=== PATIENT | male | born 1950 | race African-American/Black ===

== ENCOUNTER 2020-03-23 02:36 | Emergency (ER) | payer OTHER, MEDICARE, SELFPAY ==
[2020-03-23 02:37] VITALS: BP 153/94; PULSE 67; RESP 18; TEMP 36.7; O2SAT 97; BMI 27.3
[2020-03-23] MEDS: Tetracaine 0.5% Ophthalmic Bottle 1 DRP LEFT EYE (02:59)
[2020-03-23] MEDS: Fluorescein 1 MG STRIP 1 STRIP LEFT EYE (03:00)
--- NOTE | 2020-03-23 03:05 | ED.DCSUM_ITS ---
- ER Visit Summary Date of Service: 03/23/20 Chief Complaint: [Left eye foreign body sensation] History of Present Illness: The patient is a 69 M [presents to the emergency department complaint of foreign body sensation in his left eye. 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 Patient states that he had a coworker assist him to irrigate the eye and the coworker thought that she was able to remove something from the eye but he still feels irritation and photophobia. Patient still has foreign body sensation. Patient with history of stroke, hypertension, high cholesterol, and history of BPH.] Physical Examination: [HEENT-PERRLA, EOMI. Cranial nerves II through XII grossly intact. TMs clear. Mucous membranes moist. No adenopathy. Left eye- eyelids were everted and no foreign bodies noted. Tetracaine was instilled in the left eye and the eye was stained with floor seen and no uptake was noted. No foreign bodies noted on the cornea. No significant conjunctival erythema noted. Cardiovascular-regular rate and rhythm without murmur or ectopy Lungs-clear to auscultation, chest wall stable without crepitus or subcu emphysema Abdomen-normoactive bowel sounds, soft, nontender, no rebound or rigidity, no peritoneal signs. Extremities-intact ?4, normal range of motion, normal pulses, atraumatic] Test Results: [] Emergency Department Course and Treatment: [Patient will was given gentamicin ophthalmic drops. ] Treatment Plan: [Patient advised to follow-up with ophthalmology tomorrow. Nadira ent given gentamicin ophthalmic drops for home.] Disposition: [Discharged home in stable condition] Impression: [Left eye pain ] Foreign body sensation left eye This note was generated with Sabre dictation software. It may contain incorrect words, spelling, and punctuation that were not noted in review of the chart prior to signing ED Disposition - Plan for ED Patient: Referrals: Mraitza Feldman MD [Primary Care Provider] -
--- NOTE | 2020-03-23 03:08 | ED.DEP ---
ED Disposition - Plan for ED Patient: Instructions: ED EYE FOREIGN BODY Corneal Referrals: Maritza Feldman MD [Primary Care Provider] - Vlad Joe MD [STAFF PHYSICIAN] - 1 Day
[2020-03-23] MEDS: Gentamicin Sulfate 1 OPTH.BTL 2 DRP LEFT EYE (03:47)
[2020-03-23 03:53] VITALS: PULSE 76; RESP 16; O2SAT 98
== END 2020-03-23 03:53 | disposition home or self-care (01) ==
PROVIDERS: Emergency Provider Emergency Medicine; PCP Internal Medicine
DX: H57.12 Ocular pain, left eye (principal); R44.8 Other symptoms and signs involving general sensations and perceptions; I10 Essential (primary) hypertension; E78.00 Pure hypercholesterolemia, unspecified; N40.0 Benign prostatic hyperplasia without lower urinary tract symptoms; Z79.82 Long term (current) use of aspirin; Z79.899 Other long term (current) drug therapy; Z86.73 Personal history of transient ischemic attack (TIA), and cerebral infarction without residual deficits
CPT/HCPCS: 99283

== ENCOUNTER → 2020-05-28 | Outpatient (CLI) | payer OTHER, SELFPAY ==
[2020-05-28 10:09] VITALS: BMI 27.1
== END | disposition home or self-care (01) ==
LOC: LABSPEC 12:55
PROVIDERS: PCP Internal Medicine; Referring Provider Physician Assistant Surgical; Visit Provider Physician Assistant Surgical
DX: Z20.828 Contact with and (suspected) exposure to other viral communicable diseases (principal)
CPT/HCPCS: 87635; U0003

== ENCOUNTER 2020-09-10 16:32 | Emergency (ER) | payer OTHER, MEDICARE, SELFPAY ==
[2020-05-28 10:09] VITALS: BMI 27.1
[2020-09-10 16:33] VITALS: BP 135/80; PULSE 93; RESP 19; TEMP 36.3; O2SAT 98; BMI 29.5
--- NOTE | 2020-09-10 16:48 | ED.VIS.GEN ---
History of Present Illness Chief Complaint: Cough Informant: Patient Narrative: 70-year-old male with history of hypertension presenting with 2 days of mild cough, rhinorrhea, body aches. No loss of taste or smell. He denies chest pain or shortness of breath. He has no known exposure to anybody ill. He is eating and drinking normally. He is making normal urine and stool. - Past Medical History (1) Asthma Status: Chronic (2) BPH (benign prostatic hyperplasia) Status: Chronic (3) Benign essential HTN Status: Chronic Past Medical History - Allergies and Home Meds Allergies/Adverse Reactions: Allergies oxycodone HCl [From Percocet] Allergy (Verified 09/10/20 16:34) [place] Primary Care Physician: Maritza Feldman MD [Primary Care Provider] - Prior records reviewed: Yes Past Medical History: - - Reviewed in problem list Surgical History: noncontributory, total knee arthroplasty, - - two tendons in the right wrist repaired Lives: Spouse/ Significant Other Smoking Status: Former smoker Alcohol: None Drugs: None - Family History Maternal Family History: Family History (Last Updated 05/28/20 @ 10:13 by Clary Melendez) Other Diabetes Hypertension Family History: Reports: - - mother dies of kidney complications Paternal Family History: Family History (Last Updated 05/28/20 @ 10:13 by Clary Melendez) Other Diabetes Hypertension Family History: Reports: - - father of pneumonia Review of Systems General: Reports: Chills. Denies: Fever, Malaise Eyes: Denies: Visual changes - bilaterally, Diplopia ENT: Reports: Rhinorrhea. Denies: Sore throat Cardiovascular: Denies: Chest pain, Palpitations, Heart racing Respiratory: Reports: Cough. Denies: Dyspnea, Sputum Gastrointestinal: Denies: Abdominal pain, Nausea, Vomiting Genitourinary: Denies: Dysuria, Hematuria Musculoskeletal: Reports: Myalgias. Denies: Arthralgias, Neck pain Skin: Denies: Rash, Abscess Neurological: Denies: Headache, Weakness, Parasthesia Psych: Denies: Depression, Anxiety Physical Exam Vital Signs/Narrative: Vital Signs Temp Pulse Resp BP Pulse Ox 09/10/20 16:33 97.3 F L 93 19 H 135/80 H 98 Inital Vital Signs reviewed: Yes General: Well nourished, No Acute Distress Head: Normocephalic, Atraumatic Eyes: Perrl, EOMI ENT: Moist mucous membranes, - - Rhinorrhea Cardiovascular: Regular rate, Regular rhythm Respiratory: No distress, CTA bilaterally, Chest nontender Extremities: Nontender, No edema Skin: Normal color, No rash. Negative for: Cyanosis, Diaphoresis Neurological: Alert, Oriented x3, Cranial nerves II-XII grossly intact Psychological: Normal affect, Normal Mood Diagnostic/Tx/Re-eval Clinical Impression(s) from Imaging Studies Chest X-Ray 09/10/20 17:20 IMPRESSION: No acute pulmonary process Electronically Signed: Michael Mora MD at 17:52 EST , Service support , - Medical Decision Making 70-year-old male presenting with a cough and rhinorrhea. He has no known exposure to COVID-19. Obtained rapid Covid antigen which was negative. Chest x-ray is interpreted by myself shows no acute cardiopulmonary process. Radiology does agree. Given this I do not believe the patient needs antibiotics. I wrote him for Mucinex and he will alternate Tylenol and ibuprofen. He will return if he has new or worsening symptoms. Pression: 1. Viral syndrome ED Disposition - Plan for ED Patient: Disposition: Home or Assisted Living Instructions: ED Viral Syndrome (Adult) Prescriptions: Guaifenesin [Mucinex] 600 mg PO BID PRN PRN #[id number] PRN Reason: Congestion Prescription Printed Referrals: Maritza Feldman MD [Primary Care Provider] -
--- NOTE | 2020-09-10 17:20 | RAD_ITS ---
STUDY: X-RAY CHEST REASON FOR EXAM: Male, 70 years old. Fever and cough TECHNIQUE: Single AP portable view of the chest. COMPARISON: 11/02/2016 FINDINGS: The lungs are clear and expanded. There is no demonstrated pleural abnormality. Normal size heart. Normal mediastinum and barry. Normal visualized pulmonary arteries. Normal visualized aortic arch and descending thoracic aorta. There are diffuse degenerative changes of the visualized thoracic spine. There is degenerative osteoarthritis of the bilateral shoulders. There is no demonstrated abnormality of the visualized soft tissue structures of the upper abdomen. RAD/Chest 1 View (Portable) IMPRESSION: No acute pulmonary process Electronically Signed: Michael Mora MD at 17:52 EST , Service support ,
== END 2020-09-10 18:24 | disposition home or self-care (01) ==
PROVIDERS: Emergency Provider Student in an Organized Health Care Education/Training Program; PCP Internal Medicine
DX: B34.9 Viral infection, unspecified (principal); I10 Essential (primary) hypertension; J45.909 Unspecified asthma, uncomplicated; N40.0 Benign prostatic hyperplasia without lower urinary tract symptoms; Z79.82 Long term (current) use of aspirin; Z79.899 Other long term (current) drug therapy; Z87.891 Personal history of nicotine dependence
CPT/HCPCS: 71045; 87426; 99282

== ENCOUNTER → 2022-05-01 | Outpatient (CLI) | payer MEDICARE, SELFPAY ==
--- NOTE | 2022-05-01 08:00 | RAD_ITS ---
PROCEDURE: Fluoroscopic guided Hip Injection DATE: 05/01/2022. INDICATION: Male, 71 years old. Chronic left hip pain. PHYSICIAN: Gerardo Matthews M.D. MEDICATIONS: 80 mg of KENALOG and 3 cc of 1% LIDOCAINE. 2% lidocaine administered subcutaneously for local anesthesia. ACCESS SITE: Left hip. NEEDLE: 22-gauge spinal needle. FLUOROSCOPY TIME (if supplied): (0:45) minutes/seconds. One image was submitted. FINDINGS: The risks, benefits, and alternatives to the procedure were explained to the patient. The specific risks of bleeding, infection, and neurovascular injury were detailed and accepted. Witnessed informed consent was obtained. A 22-gauge spinal needle was positioned under radiographic fluoroscopic localization. Approximately 2 cc of ISOVUE-300 instilled for localization purposes. Medication was then injected. The patient tolerated the procedure well without any immediate complications. RAD/Inj/Asp Danny Jt Should/Hip/Knee IMPRESSION: 1. Successful fluoroscopic guided hip injection. Electronically Signed: Gerardo Matthews MD at 9:11 EDT ,
[2022-05-01] MEDS: Lidocaine 2% (5ml sdv) 5 ML VIAL.MPF INFILT (08:25)
[2022-05-01] MEDS: Lidocaine 1% (5 ml sdv) 5 ML Vial 3 ML INFILT (08:25)
[2022-05-01] MEDS: Triamcinolone Acetonide 40 MG/ML Vial 80 MG INTRAARTIC (08:25)
== END | disposition home or self-care (01) ==
LOC: RAD 07:46
PROVIDERS: PCP Internal Medicine
DX: M16.12 Unilateral primary osteoarthritis, left hip (principal); G89.29 Other chronic pain
CPT/HCPCS: 20610; 77002; Q9967

== ENCOUNTER 2022-06-30 07:08 | Emergency (ER) | payer OTHER, MEDICARE, SELFPAY ==
[2022-06-30 07:09] VITALS: BP 128/90; PULSE 89; RESP 18; TEMP 36.6; O2SAT 99; BMI 26.7
--- NOTE | 2022-06-30 07:22 | RAD_ITS ---
STUDY: X-RAY - LEFT FEMUR REASON FOR STUDY: Male, 72 years old. fall/injury TECHNIQUE: 2 view(s) of the femur. COMPARISON: None. FINDINGS: Normal visualized femur. Normal visualized soft tissue structure. Status post knee arthroplasty. RAD/Femur Min 2 Views IMPRESSION: No acute fracture or dislocation. Electronically Signed: Juan Pablo Barriga MD at 8:12 EST ,
--- NOTE | 2022-06-30 07:22 | RAD_ITS ---
STUDY: X-RAY - PELVIS REASON FOR EXAM: Male, 72 years old. fall/injury TECHNIQUE: One view of the pelvis was obtained. COMPARISON: None. FINDINGS: There is a non-specific bowel gas pattern. Normal visualized soft tissue structures. Normal bilateral iliac wings, sacroiliac joints and visualized sacrum. Normal visualized bilateral superior and inferior pubic rami. Normal pubic symphysis. Normal ischial tuberosities. There are osteoarthritic changes of the right femoral head with marginal osteophyte formation. Normal right acetabulum. There is mild articular joint space narrowing of the right hip. There are osteoarthritic changes of the left femoral head with marginal osteophyte formation. Normal left acetabulum. There is mild articular joint space narrowing of the left hip. RAD/Pelvis 1 or 2 Views IMPRESSION: No acute fracture or dislocation. Electronically Signed: Juan Pablo Barriga MD at 8:11 EST ,
--- NOTE | 2022-06-30 07:23 | EDS_ITS ---
HPI History of Present Illness Chief Complaint: Lower Extremity Injury Informant: patient Occured/Mechanism Mechanism/Context: Yes fall and Yes work related Comment: Down approximately 3 steps Onset/Context/Timing Onset: Days (5) Context: Sudden Onset Timing: Continuous Quality of Pain: Aching Location: left hip, left low back Current Severity: Moderate Maximum Severity: Severe Worsened by: WBing, walking, moving Relieved by: remaining still Associated Symptoms Associated Symptoms: Negative for Parasthesia, Weakness or Loss of Funtion Narrative Narrative: Patient was at work walking down a flight of 6 or 7 stairs, he states he caught a lip that was on the step, fell onto his left hip. This was 5 days or so ago, ever since then his left groin, hip, left low back have been hurting. He has been walking, but it is progressively more difficult and painful to do so. He has some chronic arthritis/bone spurs in the left hip, and states about a month ago he had a hip joint injection anteriorly. [facility] Medical History (Updated 06/30/22 @ 14:[address] Hussein Layton MD) Asthma Benign essential HTN BPH (benign prostatic hyperplasia) Cerebrovascular accident Gastric ulcer HLD (hyperlipidemia) Home Medications aspirin 81 mg chewable tablet 81 mg PO DAILY@0800 08/22/13 [History Last Taken 11/02/16 07:00] atorvastatin 20 mg tablet 20 mg PO QHS 08/22/13 [History Last Taken 11/01/16 21:30] docusate sodium 100 mg capsule (DOK) 100 mg PO DAILY 08/22/13 [History Last Taken 08/16/16] lisinopril 40 mg tablet 40 mg PO DAILY 08/22/13 [History Last Taken 11/02/16 07:00] doxazosin 4 mg tablet 4 mg PO QHS 04/29/15 [History Last Taken 08/16/16] nifedipine 60 mg tablet,extended release 60 mg PO DAILY 04/29/15 [History Last Taken 11/02/16 07:00] albuterol sulfate 90 mcg/actuation aerosol inhaler (Ventolin HFA) 2 puff inhalation Q4H PRN PRN Shortness Of Breath 09/30/15 [History Last Taken Unknown] tamsulosin 0.4 mg capsule 0.4 mg PO DAILY 5 days 06/02/16 [Rx Last Taken 08/16/16] Allergy/AdvReac Type Severity Reaction Status Date / Time oxycodone HCl [From Percocet] Allergy Hives Verified 06/30/22 07:13 Family History (Updated 05/28/20 @ 10:13 by Clary Melendez) Other Diabetes Hypertension Social History Smoking Status: Former smoker ROS ROS ED Constitutional Constitutional ED: Denies chills or fever(s) Musculoskeletal Musculoskeletal: Reports back pain and extremity pain; Denies neck pain Integumentary Denies Abrasions, rash or wounds Neurologic Neurologic: Denies paresthesias or weakness EXAM Physical Exam Const Vital Signs: 06/30/22 07:09 06/30/22 13:35 Temperature 97.8 F Temperature Source Temporal Pulse Rate 89 Respiratory Rate 18 Blood Pressure 128/90 H Blood Pressure Mean 102 Pulse Ox 99 98 Oxygen Delivery Method Room Air Room Air Positive well nourished and well developed General Appearance ED: well developed and NAD HEENT Reports moist mucous membranes Neck full ROM and supple Back/Spine normal to inspection Back/Spine Narrative: painful ROM but able. left low back paraspinal musculature/pelvic brim tenderness, no midline spinal tenderness. Extremity normal to inspection and full ROM Extremity Narrative: painful L hip int/ext rotation, tender greater trochanter. No deformity. Pelvis stable to AP compression and nontender ASIS. He also has some mild tenderness in the left distal femur near the knee. All compartments are soft and nondistended. There are no deformities. Full range of motion of the knee. Status post bilateral knee replacements. Neurovascularly intact distally both lower legs. Neuro oriented x3, no focal motor deficits and no sensory deficits noted Sensorium / Orientation: alert Psych mental status grossly normal and thought process normal Skin no wounds Rashes: no rashes MDM MDM MDM Narrative Medical decision making narrative: X-rays of the left hip including the femur were obtained, and then when I viewed the 1 view pelvis, interpreting it as negative for anything acute but seen an unusual calcification that resembled a fracture in the mid right femur jail onto the film, femur x-rays of the right femur were also obtained to evaluate this further. On my interpretation, 4 views of the right femur show no acute abnormality, these calcifications appear to be vascular in nature and not related to the femur itself. On my interpretation, 4 view x-ray series of the left femur and the pelvis view are negative for anything acute. Reasonable to suspect an occult left hip fracture here. I think the views are good/adequate, and I think it would be reasonable to skip CT, which is not as sensitive as MR, and get more definitive study MRI to determine if the patient should be admitted for surgery or discharged with supportive care. MRI was done, and is negative for anything acute except for arthrosis of the left hip. This is reassuring to the point where I am comfortable discharging the patient home with supportive care and close outpatient follow-up with [facility], I suspect his pain is due to exacerbation of his left hip arthrosis under the circumstances. Patient was given [place] here several times and this helped his pain temporarily, advised to continue NSAIDs as needed until he follows up, given appropriate work restrictions. Radiography Diagnostic Testing: Clinical Impression(s) from Imaging Studies Femur X-Ray 06/30/22 07:22 IMPRESSION: No acute fracture or dislocation. Electronically Signed: Juan Pablo Barriga MD at 8:12 EST Reading Location ID and State: [place] [facility] [employer] Tel , Service support , Pelvis X-Ray 06/30/22 07:22 IMPRESSION: No acute fracture or dislocation. Electronically Signed: Juan Pablo Barriga MD at 8:11 EST Reading Location ID and State: [place] [employer] , Service support , Femur X-Ray 06/30/22 07:43 IMPRESSION: No acute fracture or dislocation. Electronically Signed: Juan Pablo Barriga MD at 8:13 EST Reading Location ID and State: [place] [facility] [employer] Tel , Service support , Lower Extremity MRI 06/30/22 09:02 IMPRESSION: Mild arthrosis. Electronically Signed: Juan Pablo Barriga MD at 13:51 EST Reading Location ID and State: [place] [employer] , Service support , Discharge Plan Triage Chief Complaint: Lower Extremity Injury ED Provider: Hussein Layton Dx/Rx/DC Orders Clinical Impression: Contusion of hip, left, Hip arthrosis, Fall from steps Instructions: ED Hip Contusion Prescriptions: No Action atorvastatin 20 MG tablet 20 mg PO QHS Label Comments: cholesterol docusate sodium [DOK] 100 MG capsule 100 mg PO DAILY Label Comments: stool softener aspirin 81 MG tablet,chewable 81 mg PO DAILY@0800 Label Comments: heart health lisinopril 40 MG tablet 40 mg PO DAILY Label Comments: Blood pressure doxazosin 4 MG tablet 4 mg PO QHS Label Comments: heart health nifedipine 60 MG tablet extended release 60 mg PO DAILY Label Comments: Blood pressure albuterol sulfate [Ventolin HFA] 1 INHALER inhaler 2 puff inhalation Q4H PRN PRN (Reason: Shortness Of Breath) Label Comments: shortness of breath tamsulosin 0.4 MG capsule 0.4 mg PO DAILY 5 Days 0RF Label Comments: BPH Primary Care Provider: Maritza Feldman Referrals: [facility]] - As soon as possible (call for appt) Martiza Feldman MD [Primary Care Provider] - Disposition Disposition: Home, Self Care
--- NOTE | 2022-06-30 07:43 | RAD_ITS ---
STUDY: X-RAY - RIGHT FEMUR REASON FOR STUDY: Male, 72 years old. abn pelvis XR TECHNIQUE: 2 view(s) of the femur. COMPARISON: None. FINDINGS: Normal visualized femur. Soft tissue calcification medial to the proximal shaft of the femur. Status post knee arthroplasty. RAD/Femur Min 2 Views IMPRESSION: No acute fracture or dislocation. Electronically Signed: Juan Pablo Barriga MD at 8:13 [facility] ,
--- NOTE | 2022-06-30 09:02 | MRI_ITS ---
STUDY: MRI LEFT HIP REASON FOR EXAM: Male, 72 years old. hip injury, left hip/groin pain s/p fall TECHNIQUE: Standardized fat and water weighted pulse sequences were obtained in all 3 orthogonal planes. COMPARISON: X-ray earlier today FINDINGS: There is mild articular narrowing of the hip joint, with less than 50% loss of the hyaline cartilage. Normal acetabulum. Normal labrum. Normal femoral head. Normal femoral neck and intratrochanteric region. Normal gluteus minimus, medius and iliopsoas tendons and distal insertions. There is no trochanteric, iliopsoas or iliopectineal bursitis. Normal superior and inferior pubic rami. Normal pubic symphysis. Normal ischial tuberosity. Normal origin of the hamstring tendons. Normal visualized iliac wing, sacroiliac joint, and sacral ala. Normal visualized soft tissue structures of the pelvis. MRI/Lower Ext Joint Only (Routine) IMPRESSION: Mild arthrosis. Electronically Signed: Juan Pablo Barriga MD at 13:51 EST ,
[2022-06-30] MEDS: HYDROcodone Bitartrate/Apap 5/325 Tablet PO ×2 (10:40→14:21)
[2022-06-30 13:35] VITALS: O2SAT 98
--- NOTE | 2022-06-30 14:51 | ED.RN ---
Pt and Dr Layton completed FROI. Given to Godfrey, principal secretary
== END 2022-06-30 15:08 | disposition home or self-care (01) ==
PROVIDERS: Emergency Provider Emergency Medicine; PCP Internal Medicine; Visit Provider Emergency Medicine
DX: S70.02XA Contusion of left hip, initial encounter (principal); M16.12 Unilateral primary osteoarthritis, left hip; I10 Essential (primary) hypertension; E78.5 Hyperlipidemia, unspecified; N40.0 Benign prostatic hyperplasia without lower urinary tract symptoms; J45.909 Unspecified asthma, uncomplicated; Z87.891 Personal history of nicotine dependence; Z79.82 Long term (current) use of aspirin; Z79.899 Other long term (current) drug therapy; W10.9XXA Fall (on) (from) unspecified stairs and steps, initial encounter
CPT/HCPCS: 72170; 73552; 73721; 99283

== ENCOUNTER 2022-08-29 12:59 | Emergency (ER) | payer BC, MEDICARE, SELFPAY ==
[2022-08-29 13:00] VITALS: BP 182/97; PULSE 72; RESP 18; TEMP 36.2; O2SAT 100; BMI 27.4
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
[2022-08-29] MEDS: Ibuprofen 600 MG Tablet PO (13:54)
== END 2022-08-29 14:07 | disposition home or self-care (01) ==
LOC: ED 14:03
PROVIDERS: Emergency Provider Emergency Medicine; PCP Internal Medicine; Visit Provider Emergency Medicine
DX: S39.012A Strain of muscle, fascia and tendon of lower back, initial encounter (principal); S16.1XXA Strain of muscle, fascia and tendon at neck level, initial encounter; W24.0XXA Contact with lifting devices, not elsewhere classified, initial encounter; Y93.89 Activity, other specified; Y99.0 Civilian activity done for income or pay; E78.5 Hyperlipidemia, unspecified; I10 Essential (primary) hypertension; Z79.82 Long term (current) use of aspirin; Z79.899 Other long term (current) drug therapy; Z86.73 Personal history of transient ischemic attack (TIA), and cerebral infarction without residual deficits; Z87.891 Personal history of nicotine dependence
CPT/HCPCS: 99283

== ENCOUNTER 2023-06-15 09:00 | Outpatient (RCR) | payer BC, MEDICARE, SELFPAY ==
--- NOTE | 2023-02-12 14:30 | HP.PTEVAL_ITS ---
Patient's Visit Information Visit Information Visit Information: NICO WARD Jr. is a 72 year old M referred to Physical Therapy by Dr. Nabor Martin MD with a diagnosis of LTHA. Date of Evaluation: 02/12/23 Physical Therapist: Kishan Dyer DPT Visit Plan Frequency: 2x /Week Duration: 6 Weeks Plan: Start with L hip strengthening, glute medius, hip flexor, glute max, HS and core. 4 visits in pool to establish pool exercises. Progress to land and gym exercises to increase I program. Subjective Subjective: Pt. is here today for his initial evaluation of L CHAIM. Pt. had surgery ~4 months prior. Pt. reports overall doing well, but is still having some issues at his lateral hip. He reports doing well with walking, but has noticed a leg length discrepancy and is now wearing a heel lift in his R shoe to elevate. He initially did home health with good tolerance. He is back to walking several miles, but does report increased fatigue in his L leg with increased activities. No N/T noted. No distal LE pain. Pt. does not use an AD. He is hopeful to improve his strength in his leg in order to get back to all his work and recreational activities including golf and bowling. Pain L hip: Pain Intensity (Out of 10): 2 Pain Intensity Range: 0 and 4 Objective Objective: POSTURE: pt. has decent posture in stance. Pt. has slight flexed posture, but not much. PALPATION: Pt. has well healing incision without signs of infection. Pt. has some tenderness at his lateral hip, greater trochanter region and some at both L hip flexor and glute medius region. NEURO: Normal throughout BLEs. ROM: L knee: full motion no increase in symptoms. L hip: PROM: flexion 90deg, abd 40deg, Ext 5deg, Pt. does report tightness with bending fwrd to tie shoes and put on socks. Pt. has very tight HS bilaterally. MMT: RLE: ankle and knee 5/5 throughout; hip: flexion 37#, abd 35.1#. LLE: ankle and knee 5/5 throughout; hip: flexion 16.3#, abd 14.3#. GAIT: Pt. ambulates without AD, but has decreased L hip extension and mild increased lateral hip sway during stance phase. Pt. reports not feeling steady during L stance phase. More so in single leg stance. STAIRS: fairly normal with 1 HR, but not fluid. Balance/Special Test Scores Lower Extremity Functional Score: 47 TUG Test Time Seconds: 11.2 30 Second Chair Rise Test Seconds: 14 WOMAC Total Score: 55 WOMAC Percentatge: 42.7100 Goals Goal 1:: LTG: Pt. to be I with HEP for both gym and aquatic exercises. Goal Time Frame: 4-6 Weeks Goal 2:: STG: Pt. to be able to bend forward to don and doff socks/shoes without limitations. Goal Time Frame: 2-4 Weeks Goal 3:: LTG: Pt. to have increased strength of L hip symmetrical to R side allowing for increased stability in SLS and recreational activities. Goal Time Frame: 4-6 Weeks Goal 4:: LTG: Pt. to ambulate with normal gait pattern without increase in L hip symptoms. Goal Time Frame: 4-6 Weeks Goal 5:: LTG: Pt. to be able to bowl without increase in L hip pain. Goal Time Frame: 6-8 Weeks Rehabilitation Potential Physical Therapy Diagnosis: Pt. has signs and symptoms consistent with L CHAIM. Pt. DOS ~ 4 months ago, but is still having some weakness in his L hip with resultant pain. Nico would benefit from PT to increase in strengthen of his core and L hip progressing stability with gait, SLS allowing him to return to golfing, bowling and work related activities. Rehabilitation Potential: Excellent Anticipated Interventions Patient/Client Instruction: Educate patient on: Condition, Plan of Care, Risk Factors and Benefits of Fitness Program For the Purpose of:: To facilitate caregiver knowledge, To improve self sissy gement, To prevent re-injury, To improve ability to perform tasks related to life management and To improve tolerance to ADL's Therapeutic Exercise to Include: Strength training, Power training, Endurance training, Balance training, Body mechanics, Postural training, Flexibilty training, Gait and locomotor training, In an aquatic setting and Dynamic Lumbar Stabilization For the Purpose of:: To decrease pain, To increase ROM, To improve nutrient delivery to tissue, To increase oxygenation perfusion, To improve muscle performance and motor function, To improve ability to perform ADL's, To increase tolerance to activity/condition/position, To improve ability of physical actions for home/community/work/leisure, To improve gait and locomotor functions, To improve health of tissue, To increase flexibility/ROM, To improve balance and To improve safety with gait Text: Thank you for the opportunity to evaluate your patient. For Medicare and Medicare HMO plans, please review the plan of care and approve it. It will need to be FAXED BACK to us at [phone] for Medicare purposes. For Medicare only, by signing this I certify the plan of care. Please let me know if there are questions or concerns regarding this plan of care. Physician Signature: Date:
--- NOTE | 2023-04-21 09:11 | HP.PTREVAL ---
Re-Evaluation Intro: Dr. Nabor Martin MD, It has been my pleasure to treat ROBIN WARD Jr. over the last 8 visits for LTHA. Please see the progress note below for an update on the physical therapy plan of care! Subjective Subjective: Pt. reports life has been busy, he has been trying to do some stretching which may have been stressful on his leg. He has played some golf and bowling with some soreness. I talked to him about slowing into these activities rather than going full force. HE has been strengthening some at the gym as well. Objective Objective/Function: ROM: Pt. continues to have tight HS and IT band. Still some stiffness with L hip flexion as well. close to 90deg of hip flexion. MMT: Pt. 50% as strong from L to R with quads, HS, glute med, glute max and hip flexors. GAIT: pt. has fairly normal gait pattern after first few steps, (stiffness early). Pt. continues to present with glute med, glute max, HS and quad weakness. He would benefit from continued strengthening, but at a slower pace to decrease short term L hip soreness. He is still having some issues with putting socks and shoes on without increase in symptoms. Plan Plan Plan: Cont. to progress strengthening of glute max, glute medius, HS and quads. Add in flexibility as tolerated. Balance/Gait/Functional tests Balance/Special Test Scores Lower Extremity Functional Score: 60 TUG Test Time Seconds: 11.2 Tug Test: <20 sec.=mostly independent 30 Second Chair Rise Test Seconds: 14 WOMAC Total Score: 55 WOMAC Percentage: 42.7100 Goals Goals Goal 1:: LTG: Pt. to be I with HEP for both gym and aquatic exercises. Goal Time Frame: 4-6 Weeks Goal Progress: Progressing Goal 2:: STG: Pt. to be able to bend forward to don and doff socks/shoes without limitations. Goal Time Frame: 2-4 Weeks Goal Progress: Progressing Goal 3:: LTG: Pt. to have increased strength of L hip symmetrical to R side allowing for increased stability in SLS and recreational activities. Goal Time Frame: 4-6 Weeks Goal Progress: Progressing Goal 4:: LTG: Pt. to ambulate with normal gait pattern without increase in L hip symptoms. Goal Time Frame: 4-6 Weeks Goal Progress: Goal Met Goal 5:: LTG: Pt. to be able to bowl without increase in L hip pain. Goal Time Frame: 6-8 Weeks Goal Progress: Progressing Anticipated Interventions Anticipated Interventions Patient/Client Instruction: Educate patient on: Condition, Plan of Care, Risk Factors and Benefits of Fitness Program For the Purpose of:: To facilitate caregiver knowledge, To improve self management, To prevent re-injury, To improve ability to perform tasks related to life management and To improve tolerance to ADL's Therapeutic Exercise to Include: Strength training, Power training, Endurance training, Balance training, Body mechanics, Postural training, Flexibilty training, Gait and locomotor training, In an aquatic setting and Dynamic Lumbar Stabilization For the Purpose of:: To decrease pain, To increase ROM, To improve nutrient delivery to tissue, To increase oxygenation perfusion, To improve muscle performance and motor function, To improve ability to perform ADL's, To increase tolerance to activity/condition/position, To improve ability of physical actions for home/community/work/leisure, To improve gait and locomotor functions, To improve health of tissue, To increase flexibility/ROM, To improve balance and To improve safety with gait Re-Evaluation Ending Re-evaluation ending: Please do not hesitate to contact me at [phone] by phone or if you have questions or concerns regarding this new plan of care! Sincerely, Kishan Dyer DPT
== END 2023-06-15 19:00 | disposition home or self-care (01) ==
LOC: PT 09:00
PROVIDERS: PCP Internal Medicine; Referring Provider Orthopaedic Surgery; Visit Provider Orthopaedic Surgery
DX: Z96.642 Presence of left artificial hip joint (principal)
CPT/HCPCS: 97110; 97161; 97164

== ENCOUNTER 2023-06-18 08:29 | Inpatient (IN) | payer BC, MEDICARE, SELFPAY ==
[2023-06-18] VITALS (13 sets, daily range): BP systolic 117–183; BP diastolic 75–91; PULSE 89–112; RESP 17–29; TEMP 36.6–39.5; O2SAT 92–98; BMI 29.5
--- NOTE | 2023-06-18 08:51 | EKG12_ITS ---
Test Reason : DYSRHYTHMIA Blood Pressure : / mmHG Vent. Rate : 092 BPM Atrial Rate : 092 BPM P-R Int : 168 ms QRS Dur : 084 ms QT Int : 356 ms P-R-T Axes : 049 036 036 degrees QTc Int : 440 ms Normal sinus rhythm Nonspecific T wave abnormality Abnormal ECG Confirmed by JAYJAY BARNES, ODALIS ([id number]), technical writer and editor VICKY ARNOLD ([id number]) on 06/22/2023 1:59:02 P M Referred By: JOSE CARLOS Confirmed By:ERIKA RO MD
--- NOTE | 2023-06-18 08:52 | EDS_ITS ---
HPI History of Present Illness Chief Complaint: Shortness of Breath Detail of Chief Complaint: Shortness of breath Informant: patient Narrative Narrative: Patient presents the emergency department complaining of feeling short of breath. Patient had some sort of a virus 2 weeks ago that was flulike per . Patient started getting better but then 5 days ago after going golfing he started feeling worse again with cough. Cough productive of some white phlegm at times. Last night at around 2 AM he started vomiting and vomited twice. He has had no diarrhea. Has felt hot and cold. He complains of bodyaches. Patient complains of chest pain with cough. [facility] Medical History Asthma Benign essential HTN BPH (benign prostatic hyperplasia) Cerebrovascular accident Gastric ulcer HLD (hyperlipidemia) Home Medications aspirin 81 mg chewable tablet 81 mg PO DAILY HEART HEALTH 08/22/13 [History Last Taken 06/17/23] atorvastatin 20 mg tablet 20 mg PO QHS CHOLESTEROL 08/22/13 [History Last Taken 06/17/23] docusate sodium 100 mg capsule (DOK) 100 mg PO DAILY STOOL SOFTENER 08/22/13 [History Last Taken 06/18/23] lisinopril 40 mg tablet 40 mg PO DAILY BLOOD PRESSURE 08/22/13 [History Last Taken 06/18/23] doxazosin 4 mg tablet 4 mg PO QHS BLOOD PRESSURE 04/29/15 [History Last Taken 06/17/23] nifedipine 60 mg tablet,extended release 60 mg PO DAILY BLOOD PRESSURE 04/29/15 [History Last Taken 06/18/23] albuterol sulfate 90 mcg/actuation aerosol inhaler (Ventolin HFA) 2 puff inhalation Q4H PRN SHORTNESS OF BREATH 09/30/15 [History Last Taken 06/17/23] tamsulosin 0.4 mg capsule 0.4 mg PO DAILY PROSTATE 5 days 06/02/16 [Rx Last Taken 06/17/23] tizanidine 4 mg tablet 4 mg PO Q8H PRN MUSCLE SPASMS #20 tabs 09/02/22 [Rx Last Taken 06/18/23] Allergy/AdvReac Type Severity Reaction Status Date / Time oxycodone HCl [From Percocet] Allergy Hives Verified 06/18/23 08:34 Family History Other Diabetes Hypertension Social History (Updated 06/18/23 @ 12:[address] Dora Rousseau DO) household members: spouse housing: house Smoking Status: Former smoker alcohol intake: current alcohol intake frequency: holidays/special occasions only substance use type: does not use ROS ROS ED Review of Systems ROS Unobtainable: other Constitutional Constitutional ED: Reports lethargy; Denies chills, fever(s), sweats or weight loss Eyes Eyes: Denies blurry vision, change in vision or diplopia ENT ENT ED: Denies rhinorrhea or sore throat Cardiovascular Cardiovascular: Reports chest pain; Denies orthopnea or racing heartbeat Respiratory/Chest Respiratory/Chest: Reports cough, dyspnea and dyspnea on exertion; Denies orthopnea or sputum Gastrointestinal Gastrointestinal: Reports nausea and vomiting; Denies abdominal pain or diarrhea Genitourinary Genitourinary ED: Denies dysuria, hematuria or urinary frequency Musculoskeletal Musculoskeletal: Reports myalgias; Denies arthralgias, back pain or neck pain Integumentary Denies abscess, Abrasions or rash Neurologic Neurologic: Denies headache(s) or weakness Psychiatric Psychiatric: Denies anxiety, depression or suicidal thoughts Endocrine Endocrinology: Denies polydipsia, polyphagia or polyuria Hematologic/Lymphatic Hematologic/Lymphatic: Denies easy bleeding, easy bruising or lymphadenopathy Allergic/Immunologic Allergic/Immunologic ED: Denies mouth swelling, tongue swelling or urticaria EXAM Physical Exam Const Vital Signs: 06/18/23 08:31 06/18/23 08:46 06/18/23 09:19 Temperature 99.0 F 97.8 F Temperature Source Temporal Temporal Pulse Rate 104 H 89 Respiratory Rate 18 17 Respiratory Effort Short of Breath Labored Respiratory Depth Normal Respiratory Pattern Normal Blood Pressure 132/79 H 117/89 H Blood Pressure Mean 96 98 Pulse Ox 98 95 Oxygen Delivery Method Room Air Room Air Positive well nourished and well developed General Appearance ED: well developed and NAD HEENT Reports TM's clear and moist mucous membranes normocephalic and atraumatic; Negative for trauma or tenderness Tympanic Membrane ED: Yes TM's clear Eyes PERRL and EOMs intact bilaterally General Eye ED: Negative for pale conjunctiva or scleral icterus Neck no lymphadenopathy, supple and no JVD General: Negative for tenderness Chest Wall inspection of chest normal and palpation of chest normal Chest: Negative for tenderness Resp normal respiratory effort and clear to auscultation bilaterally Effort and Inspection: Negative for respiratory distress or pain with movement Auscultation: Negative for rhonchi, wheezes or diminished lung sounds Cardio regular rate, regular rhythm, S1 normal heart sound, S2 normal heart sound and no murmurs Peripheral Pulses: pulses 2+ throughout GI normal to inspection, nondistended, normoactive bowel sounds, soft to palpation, non-tender, non-distended and no masses GI Narrative: Tenderness palpation diffusely but seems to localize to the right lower quadrant with some guarding. There is no rebound, rigidity, or signs. Back/Spine no CVA tenderness and no thoracic nor lumbar tenderness Extremity normal to inspection General Extremety ED: Negative for edema General Extremity: Negative for edema Neuro oriented x3, CN's II-XII intact bilaterally, no sensory deficits noted and gait normal Sensorium / Orientation: awake, alert, oriented to person, oriented to place and oriented to time Motor Exam: strength 5/5 throughout and strength abnormal Psych mental status grossly normal Skin no rashes or lesions noted and no wounds MDM MDM MDM Narrative Medical decision making narrative: Patient presents with generalized weakness and cold symptoms. He started vomiting last night. concerned that she is unable to care for him. CBC with differential obtained showed an elevated white count of 12.1 with hemoglobin 12.9 and platelet count of 194. Chemistries unremarkable. D-dimer was normal less than 0.27. LFTs were normal. Alk phos was normal. Lipase normal. CT scan obtained of the abdomen and pelvis with IV contrast showed small right pleural effusion with right basilar atelectasis and prostatic enlargement. There was 2.1 x 1.9 cm hypodensity lateral midportion of right kidney and recommended correlation with ultrasound. I discussed this with family. I did obtain COVID and flu testing and patient was positive for COVID- 19. Discussed results with family members. does not feel like she can care for him at home as he is too weak. Will discuss case with hospitalist evaluate patient for admission. Lab Data Attestation: I reviewed the patient's lab results. Labs: Laboratory Results - last 24 hr 06/18/23 08:43 WBC 12.1 H RBC 6.32 H Hgb 12.9 L Hct 44.0 MCV 69.6 L MCH 20.4 L MCHC 29.3 L RDW Std Deviation 41.2 RDW Coeff of Alia 18.3 H Plt Count 194 MPV 11.2 Immature Gran % (Auto) 0.600 Neut % (Auto) 86.4 H Lymph % (Auto) 5.9 L [place] % (Auto) 5.5 Eos % (Auto) 1.2 Baso % (Auto) 0.4 Absolute Neuts (auto) 10.5 H Absolute Lymphs (auto) 0.71 L Nucleated RBC % 0 D-Dimer Quant (PE/DVT) < 0.27 L Sodium 140 Potassium 4.6 Chloride 108 H Carbon Dioxide 24.0 Anion Gap 8 BUN 15 Creatinine 1.14 Estim Creat Clear Calc 58.57 Est GFR (MDRD) Af Amer 81 Est GFR (MDRD) Non-Af 67 BUN/Creatinine Ratio 13.2 Glucose 117 H Calcium 8.5 Total Bilirubin 0.60 AST 15 ALT 23 Alkaline Phosphatase 94 Troponin I High Sens 8 Total Protein 7.1 Albumin 3.4 Globulin 3.7 Albumin/Globulin Ratio 0.9 Lipase 15 Radiography Diagnostic Testing: Clinical Impression(s) from Imaging Studies Chest X-Ray 06/18/23 09:06 IMPRESSION: No acute abnormality is seen. Electronically Signed: Gerardo Matthews MD at 9:23 EST , Abdomen/Pelvis CT 06/18/23 10:09 IMPRESSION: Small right pleural effusion with right basilar atelectasis. Prostatic enlargement. 2.1 cm x 1.9 cm hypodensity lateral midportion of the right kidney as described. Correlation with ultrasound is recommended for further evaluation. Electronically Signed: Gerardo Matthews MD at 11:01 EST , 1 view chest x-ray obtained interpreted by myself as no evidence of infiltrate or acute process. Radiology in agreement. EKG Initial EKG: Attestation: I personally reviewed and interpreted this EKG as follows: Comments: Sinus rhythm with rate of [address] changes Discharge Plan Dx/Rx/DC Orders Clinical Impression: COVID-19, Weakness, Vomiting Disposition Disposition: Acute Care Hospital [facility] Discharge Date/Time: 06/18/23 13:52
--- NOTE | 2023-06-18 09:06 | RAD_ITS ---
STUDY: X-RAY CHEST REASON FOR EXAM: Male, 73 years old. Worsening shortness of breath. TECHNIQUE: Single AP portable view of the chest. COMPARISON: Comparison is made with prior study dated September 10, 2020. FINDINGS: The lungs are clear and expanded. There is no demonstrated pleural abnormality. Normal size heart. Normal mediastinum and barry. Normal visualized pulmonary arteries. There is atherosclerotic tortuosity of the aortic arch and descending thoracic aorta. There are diffuse degenerative changes of the visualized thoracic spine. Prior right shoulder replacement. Old injury of the right shoulder. Osteoarthritis of the left shoulder joint. There is no demonstrated abnormality of the visualized soft tissue structures of the upper abdomen. RAD/Chest 1 View (Portable) IMPRESSION: No acute abnormality is seen. Electronically Signed: Gerardo Matthews MD at 9:23 EST ,
[2023-06-18 09:08] LABS: Absolute Lymphocyte Count 0.71 X10^3/uL (0.83-4.51); Absolute Neutrophil Count 10.5 X10^3/uL (2.0-7.7); Basophil# 0.05 X10^3/uL; Basophil% 0.4 % (0-1); Eosinophil# 0.15 X10^3/uL; Eosinophils% 1.2 % (0-5); Hemoglobin 12.9 g/dL (13.0-16.5); Lymphocyte # 0.71 X10^3/ul (0.83-4.51); Lymphocyte % 5.9 % (19-41); Mean Corp Hgb Conc 29.3 g/dL (32-36); Mean Corpuscular Hgb 20.4 pg (27.0-32.0); Mean Corpuscular Volume 69.6 fL (80-94); Mean Platelet Vol. 11.2 fl (6.2-12.0); Monocyte# 0.66 X10^3/uL; Monocyte% 5.5 % (0-10); NRBC Flagged by Analyzer 0 % (0-5); Neutrophil # 10.47 X10^3/uL (2.7-7.7); Neutrophil % 86.4 % (47-70); Platelet Count 194 K/mm3 (150-450); RBC Distribution Width CV 18.3 % (11.6-14.6); RBC Distribution Width SD 41.2 fl (35.1-43.9); Red Blood Count 6.32 M/mm3 (4.6-6.2); White Blood Count 12.1 K/mm3 (4.4-11.0)
[2023-06-18] MEDS: 0.9% Normal Saline (1000mL) 1,000 ML 150 ML IV ×2 (09:23→14:30)
[2023-06-18 10:00] LABS: D-Dimer Quantitative (DVT/PE) < 0.27 FEU/ug/m (0.27-0.49)
--- NOTE | 2023-06-18 10:09 | CT_ITS ---
STUDY: CT ABDOMEN AND PELVIS WITH CONTRAST REASON FOR EXAM: Male, 73 years old. History of flu. Shortness of breath. RADIATION DOSAGE (If Supplied By Facility): CTDIvol = ( 13.3 ) mGy, DLP = ( 972.95 ) mGycm TECHNIQUE: Transaxial images were obtained from the dome of the diaphragm to the symphysis pubis without oral contrast. IV 100mL Isovue-370 was administered. Sagittal and coronal images were reconstructed. Individualized dose optimization techniques were used for this CT. COMPARISON: Comparison is made with prior study dated August 18, 2016. FINDINGS: Minimal right pleural effusion with right basilar atelectasis. Coronary artery calcification. Normal liver. Normal gallbladder and extrahepatic biliary system. Normal spleen. Normal pancreas. Normal bilateral adrenal glands. There is a 2.1 cm x 1.9 cm hypodensity in the lateral midportion of the right kidney. This does not appear to be atypical cyst. Correlation with ultrasound is recommended. Normal left kidney. Normal visualized stomach. Normal small intestine. Normal colon. The appendix is visualized and appears normal. There is diffuse atherosclerotic calcification of the abdominal aorta and its major visceral branches, without a demonstrated aneurysm. Normal inferior vena cava. Normal retroperitoneum. Normal urinary bladder. There is enlargement of the prostate gland. It measures 5.1 cm x 4.7 cm. This causes indentation at the bladder base. Normal abdominal wall. There are degenerative changes of the visualized lumbar spine. Prior left total hip replacement. CT/Abdomen/Pelvis W IV Cont ONLY IMPRESSION: Small right pleural effusion with right basilar atelectasis. Prostatic enlargement. 2.1 cm x 1.9 cm hypodensity lateral midportion of the right kidney as described. Correlation with ultrasound is recommended for further evaluation. Electronically Signed: Gerardo Matthews MD at 11:01 EST ,
[2023-06-18 10:12] LABS: ALB/GLOB Ratio 0.9 RATIO (0.9-2.4); AST(SGOT) 15 U/L (15-37); Alanine Aminotransfer ALT/SGPT 23 U/L (16-61); Albumin, Serum 3.4 g/dL (3.2-5.0); Alkaline Phosphatase 94 U/L (45-117); Anion Gap 8 (5-15); BUN 15 mg/dL (7-18); BUN/Creat Ratio 13.2 RATIO (10-20); Calcium,Total 8.5 mg/dL (8.5-10.1); Chloride 108 mmol/L (98-107); Creatinine, Serum 1.14 mg/dL (0.70-1.30); EST Glomerular Filtration Rate 67 mL/min (>60); Est Glom Filt Rate - Afr Amer 81 mL/min (>60); Estimated Creatinine Clearance 58.57 ml/min; Globulin 3.7 g/dL (2.2-4.2); Glucose 117 mg/dL (74-106); Lipase 15 U/L (13-75); Potassium 4.6 mmol/L (3.5-5.1); Protein, Total 7.1 g/dL (6.4-8.2); Sodium Level 140 mmol/L (136-145); Troponin-I HS 8 pg/mL (3.0-78.0)
--- NOTE | 2023-06-18 11:56 | PCM.HP.STD ---
HPI - General General Date of Admission: 06/18/23 Date of Service: 06/18/23 Chief Complaint: Generalized weakness/malaise HPI Narrative ROBIN WARD, is a 73 M who presented emergency department at [facility] on 06/18/2023 complaining of shortness of breath and cough. Patient reported that he had a virus about 2 weeks ago that was flulike per his and he was feeling better. He went golfing last weekend and then on Thursday he started feeling worse again with cough and malaise. He states he produces white phlegm at times and last evening developed some vomiting at about 2 AM. He had 2 bouts of emesis. He denies any diarrhea. He has had chills and myalgias and complains of abdominal and chest pain with coughing due to the amount of coughing that he has been doing. He denies any known documented fever. On exam he appears as if he is not feeling well but does not appear toxic. His vital signs are overall fairly unremarkable. His temperature is 99, heart rate 105, blood pressure is 132/79, respiratory rate 17-18 oxygen saturations are 95 to 98% on room air. His white count is mildly elevated at 12.1. He has a mild anemia that microcytic in nature at 12.9 but appears stable and he does have a left shift with an 86.4% neutrophilia. D-dimer was unremarkable. Chemistry panel is unremarkable. Liver functions normal. Troponin was normal at 8. Lipase was 15. Chest x-ray showed no acute processes. CT of the abdomen pelvis showed a small right pleural effusion and right basilar atelectasis, prostatic enlargement and a 2.1 x 1.9 cm hypodense area in the right kidney for which outpatient ultrasound was recommended. The emergency department physician had intended to send the patient home however his states she works full-time and is unable to help him at home so they did request admission for short-term until he was feeling well enough to go home and take care of himself. Initially he was resistant to admission however his was insistent and he finally agreed. I did inform them that we have to omit him as observation due to his lack of meeting criteria for full admission and explained the difference between a full admission observation they voiced understanding. FORMERLY [facility], [facility] Medical History Asthma Benign essential HTN BPH (benign prostatic hyperplasia) Cerebrovascular accident Gastric ulcer HLD (hyperlipidemia) Home Medications aspirin 81 mg chewable tablet 81 mg PO DAILY HEART HEALTH 08/22/13 [History Last Taken 06/17/23] atorvastatin 20 mg tablet 20 mg PO QHS CHOLESTEROL 08/22/13 [History Last Taken 06/17/23] docusate sodium 100 mg capsule (DOK) 100 mg PO DAILY STOOL SOFTENER 08/22/13 [History Last Taken 06/18/23] lisinopril 40 mg tablet 40 mg PO DAILY BLOOD PRESSURE 08/22/13 [History Last Taken 06/18/23] doxazosin 4 mg tablet 4 mg PO QHS BLOOD PRESSURE 04/29/15 [History Last Taken 06/17/23] nifedipine 60 mg tablet,extended release 60 mg PO DAILY BLOOD PRESSURE 04/29/15 [History Last Taken 06/18/23] albuterol sulfate 90 mcg/actuation aerosol inhaler (Ventolin HFA) 2 puff inhalation Q4H PRN SHORTNESS OF BREATH 09/30/15 [History Last Taken 06/17/23] tamsulosin 0.4 mg capsule 0.4 mg PO DAILY PROSTATE 5 days 06/02/16 [Rx Last Taken 06/17/23] tizanidine 4 mg tablet 4 mg PO Q8H PRN MUSCLE SPASMS #20 tabs 09/02/22 [Rx Last Taken 06/18/23] Allergy/AdvReac Type Severity Reaction Status Date / Time oxycodone HCl [From Percocet] Allergy Hives Verified 06/18/23 08:34 Family History Other Diabetes Hypertension no surgical history Social History (Updated 06/18/23 @ 12:[address] Dora Rousseau DO) household members: spouse housing: house Smoking Status: Former smoker alcohol intake: current alcohol intake frequency: holidays/special occasions only substance use type: does not use ROS Constitutional Constitutional: Reports anorexia, chills, fatigue, malaise and weakness; Denies change in weight, fever(s), night sweats or other Eyes Eyes: Denies blurry vision, change in eye color, change in vision, discharge from eye(s), double vision, erythema, eye pain, loss of vision or other ENT HEENT: Reports nasal congestion; Denies abnormal hearing, dysphagia, ear pain, epistaxis, headache(s), hearing loss, nasal discharge, post nasal drip, sinus pressure, sore throat or other Cardiovascular Cardiovascular: Reports chest pain and dyspnea on exertion; Denies claudication, edema, lightheadedness, orthopnea, palpitations, paroxysmal nocturnal dyspnea, rapid heart rate, syncope or other Respiratory/Chest Respiratory/Chest: Reports cough, dyspnea, productive cough, shortness of breath at rest and shortness of breath with exertion Gastrointestinal Gastrointestinal: Reports abdominal pain, nausea and vomiting; Denies coffee ground emesis, constipation, diarrhea, dyspepsia, hematemesis, hematochezia, loose stools, melena or other Genitourinary Genitourinary: Denies burning urination, difficulty urinating, dysuria, hematuria, nocturia, urinary frequency, urinary hesitancy, urinary incontinence, urinary urgency or other Musculoskeletal Musculoskeletal: Reports myalgias; Denies arthralgias, back pain, joint pain, joint stiffness, joint swelling, neck pain or other Neurologic Neurologic: Denies abnormal gait, abnormal speech, confusion, disequilibrium, dizziness, focal weakness, headache(s), numbness, paresthesias, seizure-like activity, seizures, syncope, tingling, tremor(s) or other Psychiatric Psychiatric: Denies anxiety, depression, homicidal ideation, suicidal ideation or other Endocrine Endocrinology: Denies change in body appearance, cold intolerance, excessive sweating, heat intolerance, polydipsia, polyuria or other Hematologic/Lymphatic Hematologic/Lymphatic: Denies anemia, easy bleeding, easy bruising, lymphadenopathy or other Allergic/Immunologic Allergic/Immunologic: Denies rhinitis, hives, eczemia, asthma or other Vital Signs Vital Signs Vital Signs: 06/18/23 08:31 06/18/23 08:46 06/18/23 09:19 Temperature 99.0 F 97.8 F Temperature Source Temporal Temporal Pulse Rate 104 H 89 Respiratory Rate 18 17 Respiratory Effort Short of Breath Labored Respiratory Depth Normal Respiratory Pattern Normal Blood Pressure 132/79 H 117/89 H Blood Pressure Mean 96 98 Pulse Ox 98 95 Oxygen Delivery Method Room Air Room Air 06/18/23 11:42 Temperature 98.1 F Temperature Source Oral Pulse Rate 110 H Respiratory Rate 17 Respiratory Effort Respiratory Depth Respiratory Pattern Blood Pressure 157/84 H Blood Pressure Mean 108 Pulse Ox 96 Oxygen Delivery Method Room Air Weight Weight: 90.9 kg Body Mass Index (BMI) 29.5 Physical Exam Const alert, oriented x3, no apparent distress, average body habitus and well nourished Constitutional Narrative: -Swedish male, lying in bed, appears if he is not feeling well however nontoxic, at bedside General Appearance: cooperative HEENT normocephalic, head/scalp atraumatic and hearing grossly normal bilaterally HEENT Narrative: Mallampati 2, no thrush Eyes PERRL, EOMs intact bilaterally and conjunctivae normal Eyes Narrative: No scleral icterus Resp normal respiratory effort, no retractions, no use of accessory muscles and clear to auscultation bilaterally Auscultation: Negative for rales, rhonchi or wheezes Cardio regular rhythm, S1 normal heart sound, S2 normal heart sound, no murmurs, no rub, no gallops and no clicks Cardio Narrative: Mild tachycardia GI normal to inspection, nondistended, normoactive bowel sounds, soft to palpation and non-tender Extremity no clubbing, cyanosis or edema Extremity Narrative: Pedal pulses are 2+ Neuro oriented x3, moves all extremities and no focal motor deficits Speech: speech normal Psych Psych Narrative: Affect is flat and appropriate for his current situation Results Lab / Micro Data 06/18/23 08:43 06/18/23 08:43 Labs: Laboratory Results - last 24 hr 06/18/23 08:43: WBC 12.1 H, RBC 6.32 H, Hgb 12.9 L, Hct 44.0, MCV 69.6 L, MCH 20.4 L, MCHC 29.3 L, RDW Std Deviation 41.2, RDW Coeff of Alia 18.3 H, Plt Count 194, MPV 11.2, Immature Gran % (Auto) 0.600, Neut % (Auto) 86.4 H, Lymph % (Auto) 5.9 L, [place] % (Auto) 5.5, Eos % (Auto) 1.2, Baso % (Auto) 0.4, Absolute Neuts (auto) 10.5 H, Absolute Lymphs (auto) 0.71 L, Nucleated RBC % 0, D-Dimer Quant (PE/DVT) < 0.27 L, Sodium 140, Potassium 4.6, Chloride 108 H, Carbon Dioxide 24.0, Anion Gap 8, BUN 15, Creatinine 1.14, Estim Creat Clear Calc 58.57, Est GFR (MDRD) Af Amer 81, Est GFR (MDRD) Non-Af 67, BUN/Creatinine Ratio 13.2, Glucose 117 H, Calcium 8.5, Total Bilirubin 0.60, AST 15, ALT 23, Alkaline Phosphatase 94, Troponin I High Sens 8, Total Protein 7.1, Albumin 3.4, Globulin 3.7, Albumin/Globulin Ratio 0.9, Lipase 15 Micro: Microbiology 06/18/23 09:25 Nasal Secretion SARS-CoV-2 & FLU Antigen (Rapid) - Final SARS-CoV-2 (COVID 19) Imagaing Radiology Impression Chest X-Ray 06/18/23 09:06 IMPRESSION: No acute abnormality is seen. Electronically Signed: Gerardo Matthews MD at 9:23 EST , Abdomen/Pelvis CT 06/18/23 10:09 IMPRESSION: Small right pleural effusion with right basilar atelectasis. Prostatic enlargement. 2.1 cm x 1.9 cm hypodensity lateral midportion of the right kidney as described. Correlation with ultrasound is recommended for further evaluation. Electronically Signed: Gerardo Matthews MD at 11:01 EST , Assessment & Plan Assessment/Plan (1) Vomiting: (2) Weakness: (3) COVID-19: PLAN: Plan Acute COVID-19 infection -IV fluids with LR -Antiemetics as needed -Tylenol 1 g every 8 hours -Will give 1 dose of Toradol and then as needed ibuprofen -Patient does not meet any criteria for use of remdesivir or Decadron at this time as his sats are stable on room air. -Will continue to monitor -As needed antitussives -Mucinex -As needed albuterol -I-S/Pep therapy -Supportive care Nausea/vomiting -Secondary to above -IV fluids -As needed antiemetics -Okay to start regular diet once patient can tolerate Generalized weakness -Suspect related to the above -Will have PT/OT evaluate the patient however I suspect he will do quite well as he was playing golf on Thursday Right renal hypodensity -2.1 x 1.9 cm hypodensity of the right kidney -Refer to urology as an outpatient for further evaluation after discharge Chronic microcytic anemia -Hemoglobin stable and appears he runs between 11 and 13 -Current hemoglobin is 12.9 -Microcytic and expects he has a hemoglobinopathy and potentially sickle cell carrier Asthma -As needed albuterol -No wheeze on auscultation at this time History of tobacco abuse -Remote -Recommend ongoing cessation -Continue as needed albuterol -No formal diagnosis of COPD History of peptic ulcer disease -Remote -Patient is not on any current therapy -If steroids required for COVID-19 would recommend starting prophylactic PPI while patient is on steroids History of stroke -No residual deficits -Continue home aspirin HPL/HTN -Continue home atorvastatin -Home lisinopril -Continue home nifedipine -Continue home doxazosin BPH with obstruction -Continue home Flomax DVT prophylaxis -Start Lovenox 40 mg daily CODE STATUS Full code Charges/Coding Visit Charges Inpatient E&M: 85397 Init Hosp L1
[2023-06-18] MEDS: Acetaminophen 500 MG Tablet 1000 MG PO ×2 (14:58→22:57)
[2023-06-18] MEDS: guaiFENesin 1,200 MG Tablet 1200 MG PO ×2 (14:58→22:57)
[2023-06-18] MEDS: Lactated Ringers 1,000 ML 75 ML IV (14:58)
[2023-06-18] MEDS: Ketorolac 15 MG/ML Vial IV (14:59)
--- NOTE | 2023-06-18 16:37 | PCM.HOSP.N ---
Hospitalist Note Patient now having fevers of 103 maximum and now oxygen levels were 90% on room air so was placed on 2 L nasal cannula with improvement to 97%. With oxygen is less than 92% will start remdesivir and Decadron. I will also start empiric antibiotics and repeat chest x-ray in a.m. given the white count and left shift on presentation. Sputum culture, strep pneumo and Legionella antigens are still pending.
[2023-06-18] MEDS: Ceftriaxone 2 GM in 0.9% Normal Saline (50mL MB+) 50 ML IV (17:25)
[2023-06-18 17:51] LABS: Bacteria 0 SEEN /hpf (None Seen); Mucous, Urine 0 SEEN /hpf (<or=2+); Red Blood Cells-Urine 0 SEEN /hpf (0-5); White Blood Cells 0 SEEN /hpf (0-5)
[2023-06-18 17:52] LABS: Color, Urine Yellow (Yellow); Glucose, Dipstick Normal (Normal); Ketone-Dipstick Negative (Negative); Leukocyte Esterase-Dipstick Negative /ul (Negative); Nitrite-Dipstick Negative (Negative); Occult Blood-Urine Negative /ul (Negative); Protein-Dipstick 15 mg/dl (Negative); Urine Bilirubin Dipstick Negative (Negative); Urine Clarity Clear (Clear); Urine Urobilinogen 1 mg/dl (Normal)
[2023-06-18] MEDS: Azithromycin 500 MG in Dextrose 5%-Water (250mL Bag) 250 ML 250 MG IV (17:53)
[2023-06-18 17:58] LABS: Squamous Epithelial Cells - UA 0-5 SEEN /hpf (0-5)
[2023-06-18] MEDS: Remdesivir 200 MG in 0.9% Normal Saline (250mL Bag) 210 ML 250 MG IV (18:19)
[2023-06-18] MEDS: 0.9% Normal Saline (250mL Bag) 250 ML 15 ML IV (18:25)
[2023-06-18] MEDS: Ipratropium/Albuterol Sulfate 3 ML AMPUL.NEB INHALATION (19:36)
[2023-06-18] MEDS: Benzonatate 100 MG Capsule PO (22:57)
[2023-06-18] MEDS: MELATONIN 3 MG TABLET PO (22:57)
[2023-06-18] MEDS: Atorvastatin Calcium 20 MG Tablet PO (22:57)
[2023-06-18] MEDS: Doxazosin 4 MG Tablet PO (22:57)
[2023-06-19] VITALS (9 sets, daily range): BP systolic 122–142; BP diastolic 68–79; PULSE 81–99; RESP 18–20; TEMP 36.6–38.1; O2SAT 94–97
--- NOTE | 2023-06-19 05:20 | RAD_ITS ---
INDICATION: hypoxia EXAMINATION/TECHNIQUE: X-RAY - XR Chest 1 View COMPARISON: June 18, 2023 FINDINGS: LINES/DEVICES: None. LUNGS: No new consolidation, edema or effusion. No pneumothorax. MEDIASTINUM AND CARDIOVASCULAR STRUCTURES: Cardiac silhouette not enlarged. Central airways and mediastinal contour are unremarkable. BONES AND SOFT TISSUES: There is a right shoulder arthroplasty in place. RAD/Chest 1 View (Portable) IMPRESSION: No radiographic evidence of acute cardiopulmonary disease. Electronically Signed: Jacquie Tineo MD at 14:35 EST ,
[2023-06-19] MEDS: Benzonatate 100 MG Capsule PO ×2 (06:08→20:51)
[2023-06-19] MEDS: Senna/Docusate Sodium 1 Tablet 2 TABLET PO ×2 (06:08→20:51)
[2023-06-19] MEDS: Acetaminophen 500 MG Tablet 1000 MG PO ×3 (06:08→20:35)
[2023-06-19 08:17] LABS: Absolute Lymphocyte Count 0.61 X10^3/uL (0.83-4.51); Basophil# 0.03 X10^3/uL; Basophil% 0.4 % (0-1); Eosinophil# 0.16 X10^3/uL; Eosinophils% 2.3 % (0-5); Hematocrit 38.5 % (40-54); Hemoglobin 11.5 g/dL (13.0-16.5); Lymphocyte # 0.61 X10^3/ul (0.83-4.51); Lymphocyte % 8.7 % (19-41); Mean Corp Hgb Conc 29.9 g/dL (32-36); Mean Corpuscular Hgb 20.4 pg (27.0-32.0); Mean Corpuscular Volume 68.4 fL (80-94); Monocyte# 1.17 X10^3/uL; Monocyte% 16.7 % (0-10); NRBC Flagged by Analyzer 0 % (0-5); Neutrophil # 5.01 X10^3/uL (2.7-7.7); Neutrophil % 71.6 % (47-70); Platelet Count 161 K/mm3 (150-450); RBC Distribution Width CV 16.9 % (11.6-14.6); RBC Distribution Width SD 40.1 fl (35.1-43.9); Red Blood Count 5.63 M/mm3 (4.6-6.2)
[2023-06-19 08:38] LABS: ALB/GLOB Ratio 0.8 RATIO (0.9-2.4); AST(SGOT) 15 U/L (15-37); Alanine Aminotransfer ALT/SGPT 22 U/L (16-61); Albumin, Serum 2.8 g/dL (3.2-5.0); Alkaline Phosphatase 80 U/L (45-117); Anion Gap 4 (5-15); BUN 16 mg/dL (7-18); Chloride 108 mmol/L (98-107); Creatinine, Serum 1.07 mg/dL (0.70-1.30); EST Glomerular Filtration Rate 72 mL/min (>60); Est Glom Filt Rate - Afr Amer 87 mL/min (>60); Globulin 3.4 g/dL (2.2-4.2); Glucose 95 mg/dL (74-106); Magnesium 2.1 mg/dL (1.6-2.6); Phosphorus 2.9 mg/dL (2.5-4.9); Potassium 4.1 mmol/L (3.5-5.1); Protein, Total 6.2 g/dL (6.4-8.2); Sodium Level 138 mmol/L (136-145)
[2023-06-19] MEDS: Ipratropium/Albuterol Sulfate 3 ML AMPUL.NEB INHALATION ×2 (08:54→20:00)
[2023-06-19] MEDS: Ceftriaxone 2 GM in 0.9% Normal Saline (50mL MB+) 50 ML IV (09:28)
[2023-06-19] MEDS: Azithromycin 500 MG in Dextrose 5%-Water (250mL Bag) 250 ML 250 MG IV (09:43)
[2023-06-19] MEDS: Aspirin 81 MG TAB.CHEW PO (09:44)
[2023-06-19] MEDS: Enoxaparin 40 MG/0.4 ML Syringe SC (09:44)
[2023-06-19] MEDS: dexAMETHasone 4 MG Tablet 6 MG PO (09:45)
[2023-06-19] MEDS: NIFEdipine 60 MG Tablet PO (09:45)
[2023-06-19] MEDS: Tamsulosin HCl 0.4 MG Capsule PO (09:45)
[2023-06-19] MEDS: Docusate Sodium 100 MG Capsule PO (09:45)
[2023-06-19] MEDS: guaiFENesin 1,200 MG Tablet 1200 MG PO ×2 (09:46→20:36)
[2023-06-19] MEDS: Pantoprazole Sodium 40 MG Tablet PO (09:47)
[2023-06-19] MEDS: Lisinopril 40 MG Tablet PO (09:49)
[2023-06-19] MEDS: Remdesivir 100 MG in 0.9% Normal Saline (250mL Bag) 230 ML 250 MG IV (10:00)
--- NOTE | 2023-06-19 11:24 | PN.HOSP_ITS ---
Reason for Visit Reason for Visit: Generalized weakness/malaise Subjective Subjective As noted he decompensated some late yesterday with requiring some oxygen and having fevers. Tmax yesterday afternoon was 102.8. Still with intermittent low-grade fevers since that point in time. Tmax today is 100.5 patient states he feels like he got hit with a [place] truck and does not remember me seeing him yesterday. He is tolerating a little bit of food with no more emesis. Still having myalgias and significant cough with production. Sputum culture was sent and antibiotics were started as noted. Objective Data Objective Data Vital Signs: Vital Signs Temp Pulse Resp BP Pulse Ox O2 Del Method O2 Flow Rate 99.5 F H 99 18 137/75 H 94 Nasal Cannula 2 06/19/23 09:34 06/19/23 09:34 06/19/23 09:34 06/19/23 09:34 06/19/23 09:34 06/19/23 09:38 06/19/23 09:38 Oxygen Flow Rate (L/min) 2 Oxygen Delivery Method Nasal Cannula Weight: 90.9 kg Body Mass Index (BMI) 29.5 Intake & Output: Intake and Output for Last 24 Hours 06/17/23 06/18/23 06/19/23 23:59 23:59 23:59 Intake Total 1621.25 / 1621.25 789.5 / 789.5 Output Total 200 / 600 1250 / 1250 Balance 1421.25 / 1021.25 -460.5 / -460.5 Lab / Micro Data 06/19/23 07:30 06/19/23 07:30 Labs: Laboratory Results - last 24 hr 06/18/23 17:30: Urine Color Yellow, Urine Clarity Clear, Urine pH 8.0, Ur Specific [place] 1.010, Urine Protein 15 H, Urine Glucose (UA) Normal, Urine Ketones Negative, Urine Occult Blood Negative, Urine Nitrite Negative, Urine Bilirubin Negative, Urine Urobilinogen 1 H, Ur Leukocyte Esterase Negative, Urine RBC 0 SEEN, Urine WBC 0 SEEN, Ur Squamous Epith Cells 0-5 SEEN, Urine Bacteria 0 SEEN, Urine Mucus 0 SEEN 06/19/23 07:30: WBC 7.0, RBC 5.63, Hgb 11.5 L, Hct 38.5 L, MCV 68.4 L, MCH 20.4 L, MCHC 29.9 L, RDW Std Deviation 40.1, RDW Coeff of Alia 16.9 H, Plt Count 161, MPV 11.0, Immature Gran % (Auto) 0.300, Neut % (Auto) 71.6 H, Lymph % (Auto) 8.7 L, [place] % (Auto) 16.7 H, Eos % (Auto) 2.3, Baso % (Auto) 0.4, Absolute Neuts (auto) 5.0, Absolute Lymphs (auto) 0.61 L, Nucleated RBC % 0, Sodium 138, Potassium 4.1, Chloride 108 H, Carbon Dioxide 26.0, Anion Gap 4 L, BUN 16, Creatinine 1.07, Estim Creat Clear Calc 62.40, Est GFR (MDRD) Af Amer 87, Est GFR (MDRD) Non-Af 72, BUN/Creatinine Ratio 15.0, Glucose 95, Calcium 8.0 L, Phosphorus 2.9, Magnesium 2.1, Total Bilirubin 0.40, AST 15, ALT 22, Alkaline Phosphatase 80, Total Protein 6.2 L, Albumin 2.8 L, Globulin 3.4, Albumin/Globulin Ratio 0.8 L Micro: Microbiology 06/18/23 17:00 Sputum, Expectorated/Coughed Respiratory Culture - 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 06/18/23 19:43 Mucosa - Nasopharyngeal Respiratory Panel (PCR) - Final 06/18/23 17:30 Urine, Clean Catch Legionella Antigen - Final 06/18/23 17:30 Urine, Clean Catch Streptococcus pneumoniae Antigen (M - Final 06/18/23 09:25 Nasal Secretion SARS-CoV-2 & FLU Antigen (Rapid) - Final SARS-CoV-2 (COVID 19) Physical Exam Const alert, oriented x3, no apparent distress, average body habitus and well nourished Constitutional Narrative: -[place]ian male, sitting up in bed, nursing at bedside, appears if he is feeling better than yesterday but still not appearing his baseline, nontoxic General Appearance: cooperative HEENT normocephalic, head/scalp atraumatic and hearing grossly normal bilaterally HEENT Narrative: Mallampati 2, no thrush Resp normal respiratory effort, no retractions, no use of accessory muscles and clear to auscultation bilaterally Resp Narrative: Scattered and expiratory wheezes bilaterally Auscultation: wheezes; Negative for rales or rhonchi Cardio regular rate, regular rhythm, S1 normal heart sound, S2 normal heart sound, no murmurs, no rub, no gallops and no clicks Cardio Narrative: Tachycardia is resolved GI normal to inspection, nondistended, normoactive bowel sounds and soft to palpation GI Narrative: Mild diffuse tenderness from coughing but no focal tenderness Extremity no clubbing, cyanosis or edema Extremity Narrative: Pedal pulses are 2+ Neuro oriented x3, CN's II-XII intact bilaterally, moves all extremities and no focal motor deficits Speech: speech normal Psych affect normal Psych Narrative: Contact is good patient interacts appropriately Assessment & Plan Assessment/Plan (1) Vomiting: (2) Weakness: (3) COVID-19: PLAN: Plan Acute COVID-19 infection/+- Superimposed bacterial infection -IV fluids discontinued -Antiemetics as needed -Continue Tylenol 1 g every 8 hours -As needed ibuprofen available with normalized renal function -Oxygen required increased to 2 L overnight therefore we did start Decadron and remdesivir -Decadron day 2 of 10 -Remdesivir day 2 of 5 -Sputum cultures pending -Respiratory viral panel was unremarkable -Strep pneumo and Legionella antigens are unremarkable -Continue ceftriaxone azithromycin--> will discontinue if cultures are negative -Continue scheduled DuoNebs and as needed albuterol -As needed antitussives -Mucinex -I-S/Pep therapy--> strongly encouraged compliance -Supportive care -Will need ambulatory pulse ox prior to discharge Nausea/vomiting -Improved -Patient now tolerating p.o. 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 and potentially sickle cell carrier Asthma -As needed albuterol -Patient does have we note History of tobacco abuse -Remote -Recommend ongoing cessation -Continue as needed albuterol -No formal diagnosis of COPD History of peptic ulcer disease -Remote -Patient is not on any current therapy -If steroids required for COVID-19 would recommend starting prophylactic PPI while patient is on steroids History of stroke -No residual deficits -Continue home aspirin HPL/HTN -Continue home atorvastatin -Continue Home lisinopril -Continue home nifedipine -Continue home doxazosin BPH with obstruction -Continue home Flomax DVT prophylaxis -Start Lovenox 40 mg daily CODE STATUS Full code Charges/Coding Visit Charges Inpatient E&M: 40032 Subs Hosp L2
[2023-06-19] MEDS: 0.9% Normal Saline (250mL Bag) 250 ML 15 ML IV (13:14)
[2023-06-19] MEDS: Albuterol 2.5 MG/3 ML VIAL.NEB. INHALATION (13:41)
[2023-06-19] MEDS: Doxazosin 4 MG Tablet PO (20:36)
[2023-06-19] MEDS: Atorvastatin Calcium 20 MG Tablet PO (20:36)
[2023-06-19] MEDS: MELATONIN 3 MG TABLET PO (20:51)
[2023-06-20] VITALS (9 sets, daily range): BP systolic 124–142; BP diastolic 68–75; PULSE 78–98; RESP 14–20; TEMP 36.2–36.6; O2SAT 92–95
[2023-06-20] MEDS: Albuterol 2.5 MG/3 ML VIAL.NEB. INHALATION ×3 (00:52→11:23)
[2023-06-20] MEDS: Acetaminophen 500 MG Tablet 1000 MG PO ×2 (05:54→14:10)
[2023-06-20] MEDS: Benzonatate 100 MG Capsule PO (06:00)
[2023-06-20] MEDS: Aspirin 81 MG TAB.CHEW PO (09:31)
[2023-06-20] MEDS: Tamsulosin HCl 0.4 MG Capsule PO (09:32)
[2023-06-20] MEDS: Lisinopril 40 MG Tablet PO (09:32)
[2023-06-20] MEDS: dexAMETHasone 4 MG Tablet 6 MG PO (09:32)
[2023-06-20] MEDS: guaiFENesin 1,200 MG Tablet 1200 MG PO (09:33)
[2023-06-20] MEDS: Enoxaparin 40 MG/0.4 ML Syringe SC (09:33)
[2023-06-20] MEDS: Pantoprazole Sodium 40 MG Tablet PO (09:33)
[2023-06-20] MEDS: Ceftriaxone 2 GM in 0.9% Normal Saline (50mL MB+) 50 ML IV (09:34)
--- NOTE | 2023-06-20 09:46 | DS.PCM_ITS ---
Providers Date of Admission: 06/19/23 Date of Discharge: 06/20/23 Primary Care Physician: Dr. Maritza Feldman MD Reason For Visit: ACUTE COVID 19 INFECTION/WEAKNESS Diagnosis Discharge Diagnosis (1) Vomiting: Status: Acute Code(s): R11.10 - Vomiting, unspecified (2) Weakness: Status: Acute Code(s): R53.1 - Weakness (3) COVID-19: Status: Acute Code(s): U07.1 - COVID-19 Medications at Discharge Home Medications aspirin 81 mg chewable tablet 81 mg PO DAILY HEART HEALTH 08/22/13 atorvastatin 20 mg tablet 20 mg PO QHS CHOLESTEROL 08/22/13 docusate sodium 100 mg capsule (DOK) 100 mg PO DAILY STOOL SOFTENER 08/22/13 lisinopril 40 mg tablet 40 mg PO DAILY BLOOD PRESSURE 08/22/13 doxazosin 4 mg tablet 4 mg PO QHS BLOOD PRESSURE 04/29/15 nifedipine 60 mg tablet,extended release 60 mg PO DAILY BLOOD PRESSURE 04/29/15 albuterol sulfate 90 mcg/actuation aerosol inhaler (Ventolin HFA) 2 puff inhalation Q4H PRN SHORTNESS OF BREATH 09/30/15 tamsulosin 0.4 mg capsule 0.4 mg PO DAILY PROSTATE 5 days 06/02/16 tizanidine 4 mg tablet 4 mg PO Q8H PRN MUSCLE SPASMS #20 tabs 09/02/22 amoxicillin 875 mg-potassium clavulanate 125 mg tablet 1 tab PO BID #10 tabs 06/20/23 codeine 8 mg-guaifenesin 200 mg/5 mL oral liquid 5 ml PO Q6H PRN cough #473 mL 06/20/23 dexamethasone 4 mg tablet 6 mg (1.5 x 4 mg) PO DAILY #7 tabs 06/20/23 guaifenesin 1,200 mg tablet, extended release 12 hr (Mucus Relief ER) 1,200 mg PO BID 1 week #14 tabs 06/20/23 Hospital Course Operations None Procedures EKG and - (Chest x-ray) Summary of Care Provided Minutes Spent on Discharge: 38 Hospital Course: Mr. Vazquez is a 73-year-old -[place] male who presented to the emergency department at [facility] on 06/18/2023 complaining of shortness of breath and cough. The patient reported that about 2 weeks prior he had had a virus that was flulike and he was feeling better. Last weekend he went golfing on Thursday and Thursday but on Thursday evening he started feeling worse again with cough and malaise. He reported that he had been coughing up white sputum at times and the evening prior to presentation had 2 episodes of emesis that started about 2 AM. He had had none since but had not had any oral intake since either. He denied any diarrhea. He endorsed chills and myalgias and completed of abdominal and chest pain with coughing due to the amount of coughing that he had been doing. He denied any documented fever but did feel warm per his . His vital signs on presentation were temperature was 99, heart rate 105, blood pressure was 132/79, respiratory rate was 17-18 oxygen saturations were 95 to 98% on room air. He had a slight leukocytosis on his CBC at 12.1. 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 He did have a left shift on his CBC with an 86.4% neutrophilia. A D-dimer was unremarkable. Chemistry panel was unremarkable. His liver functions were normal and his troponin was 8. Lipase was 15. Chest x-ray showed no acute process. CT of the abdomen pelvis showed a small right pleural effusion and right basilar atelectasis, prostatic enlargement and a 2.1 x 1.9 cm hypodense area in the right kidney for which an outpatient ultrasound was recommended. He was found to be COVID-19 positive. Initially the emergency department had intended to send the physician home and the patient desired this however his works full-time and she was nervous that he would be unable to care for himself as he was fairly fatigued and tired. We initially admitted him under observation however overnight after admission he decompensated and required supplemental oxygen. When he became hypoxemic on room air we started him on supplemental oxygen and started remdesivir and Decadron. He also spiked a fever with a Tmax of 102.7 so I therefore started empiric antibiotics and we obtain a sputum culture which showed Klebsiella pneumonia when resulted. He was maintained on IV antibiotics from the evening of admission to the time of discharge with ceftriaxone and azithromycin. Azit hromycin was discontinued after organism was found to be Klebsiella and he was maintained on ceftriaxone. On the a.m. of 06/20/2023 he appeared to be much improved he was able to get out of bed independently and use the bathroom and was not hypoxic with exertion or at rest. We did feel with the way he was functioning and his overall clinical improvement he was stable to go home. We did discharge him on Decadron 6 mg daily for another 7 days for his COVID-19 infection since he was hypoxic during his hospital course and Augmentin twice daily for another 5 days to complete his treatment for his pneumonia. He was also encouraged to take Mucinex and a prescription for as needed Robitussin with codeine was sent for his coughing. I did recommend isolation through 06/22/2023 as that is 10 days from symptom onset for his COVID-19 infection. We did discuss that he may have some generalized weakness and overall fatigue for couple of weeks given the fact that he did have a pneumonia as well as COVID-19. From my standpoint he may return to work on 06/25/2023. With his CT showing the small right kidney hypodense lesion a referral to Dr. Moyer for urology was made at the time of discharge and the patient was encouraged to call to set up for follow-up. We have also asked him to follow-up with his primary care physician within the next 2 weeks after discharge. Discharge diagnoses: Acute hypoxia Acute COVID-19 infection Klebsiella pneumonia Nausea and vomiting-resolved Leukocytosis-resolved Generalized weakness-improved Right renal hypodensity 2.1 x 1.1 cm--> referral for outpatient urology made Chronic microcytic anemia History of asthma History of tobacco abuse History of peptic ulcer disease History of stroke Hypertension Hyperlipidemia BPH with obstruction Physical Exam Narrative Patient indicates he is feeling better. Still coughing. Slept better last night. Overall still weak but improved. Is able to get up out of bed and use the bathroom independently without any difficulty. Had a large bowel movement last evening. Is somewhat reluctant to go home however I told him if he is on room air and does not need any supplemental oxygen than the rest of the treatment he is getting can be pursued as an outpatient and he voiced understanding. We did do an ambulatory oxygen saturation and he did not require any supplemental oxygen with exertion either. Const alert, oriented x3, no apparent distress, average body habitus, no limitations and well nourished Constitutional Narrative: -Czech male, sitting up in bed, nursing at bedside, appears if he is feeling better than yesterday but still not appearing his baseline, nontoxic, overall appears as if he is feeling much better General Appearance: cooperative, comfortable, well kempt and well developed Orientation / Consciousness: awake, oriented to person, oriented to place and oriented to time Exam Limitations: no limitations Nutritional Appearance: overweight HEENT normocephalic, head/scalp atraumatic, hearing grossly normal bilaterally and moist oral mucous membranes HEENT Narrative: Mallampati 2, no thrush Eyes PERRL, EOMs intact bilaterally and conjunctivae normal Eyes Narrative: No scleral icterus Neck no lymphadenopathy and supple Neck Narrative: Trachea mid line, no thyroid enlargement Resp normal respiratory effort, no retractions, no use of accessory muscles and clear to auscultation bilaterally Resp Narrative: Diminished but clear Auscultation: wheezes; Negative for rales or rhonchi Cardio regular rate, regular rhythm, S1 normal heart sound, S2 normal heart sound, no murmurs, no rub, no gallops and no clicks GI normal to inspection, nondistended, normoactive bowel sounds, soft to palpation and non-tender GI Narrative: Mild diffuse tenderness from coughing but no focal tenderness Extremity no clubbing, cyanosis or edema Extremity Narrative: Pedal pulses are 2+ Skin no rashes or lesions noted, no wounds, skin turgor normal and no jaundice Neuro oriented x3, CN's II-XII intact bilaterally, moves all extremities and no focal motor deficits Speech: speech normal Psych affect normal Psych Narrative: Contact is good patient interacts appropriately Weight / BMI Weight Weight: 90.9 kg Body Mass Index (BMI) 29.5 ABG / Lab / Microbiology Data 06/19/23 07:30 06/19/23 07:30 Microbiology: Microbiology 06/18/23 17:00 Sputum, Expectorated/Coughed Gram Stain - Final 06/18/23 17:00 Sputum, Expectorated/Coughed Respiratory Culture - Final Klebsiella pneumoniae sp pneum 06/18/23 19:43 Mucosa - Nasopharyngeal Respiratory Panel (PCR) - Final 06/18/23 17:30 Urine, Clean Catch Legionella Antigen - Final 06/18/23 17:30 Urine, Clean Catch Streptococcus pneumoniae Antigen (M - Final 06/18/23 09:25 Nasal Secretion SARS-CoV-2 & FLU Antigen (Rapid) - Final SARS-CoV-2 (COVID 19) Radiography Diagnostic Testing: Radiology Impression Chest X-Ray 06/19/23 05:20 IMPRESSION: No radiographic evidence of acute cardiopulmonary disease. Electronically Signed: Jacquie Tineo MD at 14:35 EST , D/C Instructions Discharge Diet: Low fat / Low cholesterol Discharge Activity: Return to Normal Activity Return to work on: 06/25/23 Meaningful Use Info Meaningful Use Diagnoses (Choose all that apply): None applicable Discharge Plan Admission Admit Date/Time: 06/19/23 11:11 Primary Reason for Your Visit: Cough/shortness of breath/fatigue Attending Provider: Dora Rousseau Primary Care Provider: Maritza Feldman Instructions Additional Instructions / Restrictions: 1. While you are hospitalized you were found to have a COVID-19 infection as well as a bacterial pneumonia with Klebsiella pneumoniae. You were maintained on treatment with steroids for your COVID-19 infection and antibiotics for your bacterial pneumonia. We will discharge you on steroids to complete a 10-day course of which you have 7 more days and oral antibiotics of which you have 5 more days. Please complete both courses. 2. With regards to your COVID-19 infection you will need to isolate for 3 more days until 06/22/2023 to avoid spreading infection. 3. Continue to use your incentive spirometer and Acapella at home until your respiratory infection has resolved. 4. A CAT scan of your abdomen and pelvis was done during her hospital stay and you were found to have prostate enlargement and an area on your right kidney which an ultrasound was recommended to be performed. I have referred you to urology to have this assessed further. Please call on Thursday to set up an appointment to see Dr. Moyer for this. Discharge Orders/Prescriptions Prescriptions: New guaifenesin [Mucus Relief ER] 1,200 mg Tablet Extended Release 12hr 1,200 mg PO BID 7 Days Qty: 14 0RF dexamethasone 4 mg Tablet 6 mg PO DAILY Qty: 7 0RF codeine-guaifenesin 8-200 mg/5 mL liquid 5 ml PO Q6H PRN (Reason: cough) Qty: 473 0RF amoxicillin-pot clavulanate 875-125 mg tablet 1 tab PO BID Qty: 10 0RF Continued tizanidine 4 mg tablet 4 mg PO Q8H PRN (Reason: MUSCLE SPASMS ) Qty: 20 0RF atorvastatin 20 MG tablet 20 mg PO QHS docusate sodium [DOK] 100 MG capsule 100 mg PO DAILY aspirin 81 MG tablet,chewable 81 mg PO DAILY lisinopril 40 MG tablet 40 mg PO DAILY doxazosin 4 MG tablet 4 mg PO QHS nifedipine 60 MG tablet extended release 60 mg PO DAILY albuterol sulfate [Ventolin HFA] 1 INHALER inhaler 2 puff inhalation Q4H PRN (Reason: SHORTNESS OF BREATH ) tamsulosin 0.4 MG capsule 0.4 mg PO DAILY 5 Days 0RF Referrals / Follow Up: Maritza Feldman MD [Primary Care Provider] - Within 2 Weeks Disposition Disposition (needs filled in before D/C Order can be placed): Home, Self Care Charges/Coding Visit Charges Inpatient E&M: 66068 Disch Hosp >30min
--- NOTE | 2023-06-20 10:40 | CASEMGMT ---
NEVAEH RODRÍGUEZ Discharge Planning Assessment: Face to Face with patient for initial transition planning/care coordination assessment. NEVAEH RODRÍGUEZ introduced self and role at [facility]. Pt alert, lying in bed, answering questions appropriately. Pt coughing upon first entering room and became SOB. Pt took a moment to catch his breath and was able to converse normally. Pt voiced understanding of NEVAEH RODRÍGUEZ role and was agreeable to participating in assessment with at bedside.? Care providers, pharmacy,?and demographics verified. ? 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 Wagner Preferred Pharmacy: [facility] Insurance: [employer] and [place] Prescription Benefit:? yes LNOK: spouse Lynsey Living Arrangements: pt lives with his spouse in a two story home without steps to enter. Pt states he is independent with ADLs and IADLs. Transportation: Pt drives and denies any concerns with transportation DME: denies. Encouraged pt and spouse to obtain a PO to monitor O2 saturations at home. states this is affordable and they can obtain. SNF: [facility] s/p knee OR in the past. HHC: pt does not recall provider and was for same knee OR ? Pt's goal/plan: return home at discharge with the support of his spouse. Pt denies any discharge needs at this time. Noted pt to be on RA. If O2 needed, pt denies any preference in provider and is agreeable with [facility] if needed. Pierre North RN CM
[2023-06-20] MEDS: Remdesivir 100 MG in 0.9% Normal Saline (250mL Bag) 230 ML 250 MG IV (11:53)
[2023-06-20] MEDS: NIFEdipine 60 MG Tablet PO (11:53)
[2023-06-20] MEDS: Ipratropium/Albuterol Sulfate 3 ML AMPUL.NEB INHALATION (13:59)
== END 2023-06-20 15:08 | disposition home or self-care (01) | DRG 177 ==
LOC: ED 11:26 → MS3 12:17
PROVIDERS: Admitting Provider Internal Medicine; Emergency Provider Emergency Medicine; PCP Internal Medicine; Visit Provider Internal Medicine
DX: U07.1 COVID-19 (principal); J15.0 Pneumonia due to Klebsiella pneumoniae; J12.82 Pneumonia due to coronavirus disease 2019; N13.8 Other obstructive and reflux uropathy; D58.2 Other hemoglobinopathies; I10 Essential (primary) hypertension; D50.9 Iron deficiency anemia, unspecified; J45.909 Unspecified asthma, uncomplicated; E78.5 Hyperlipidemia, unspecified; N40.1 Benign prostatic hyperplasia with lower urinary tract symptoms; E66.3 Overweight; R09.02 Hypoxemia; Z68.29 Body mass index [BMI] 29.0-29.9, adult; Z79.82 Long term (current) use of aspirin; Z79.899 Other long term (current) drug therapy; Z87.11 Personal history of peptic ulcer disease; Z86.73 Personal history of transient ischemic attack (TIA), and cerebral infarction without residual deficits; Z87.891 Personal history of nicotine dependence
CPT/HCPCS: 36415; 71045; 74177; 80053; 81001; 83690; 83735; 84100; 84484; 85025; 85379; 87040; 87070; 87077; 87186; 87205; 87428; 87449; 87633; 93005; 94640; 94668; 97161; 97166; 97802; 99285; J7030; J7050; J7120; Q9967; A4216; J0248; J0696

== ENCOUNTER 2023-12-30 12:23 | Emergency (ER) | payer OTHER, BC, MEDICARE, SELFPAY ==
[2023-12-30 12:23] VITALS: BP 157/97; PULSE 70; RESP 19; TEMP 35.9; O2SAT 98; BMI 26.3
--- NOTE | 2023-12-30 12:34 | ED.RN ---
leroy on the way to drug test patient.
--- NOTE | 2023-12-30 13:55 | RAD_ITS ---
STUDY: X-RAY - CERVICAL SPINE REASON FOR EXAM: Male, 73 years old. History of fall. TECHNIQUE: 5 view(s) of the cervical spine were obtained including oblique views. COMPARISON: None FINDINGS: Normal anterior atlantoaxial articulation. Normal odontoid process. There is straightening of the normal cervical lordosis. There is multi-level endplate spondylosis. There is multi-level degenerative disc disease with multilevel disc space narrowing. Normal visualized intervertebral neuroforamina. There are atherosclerotic vascular calcifications of the carotid arteries. RAD/Cerv Spine 4 or 5 Views IMPRESSION: Loss of the normal cervical lordosis. Multilevel disc space narrowing and spondylosis. Carotid bifurcations calcification. Electronically Signed: Gerardo Matthews MD at 14:43 EDT ,
--- NOTE | 2023-12-30 13:55 | RAD_ITS ---
STUDY: X-RAY - SACRUM/COCCYX REASON FOR EXAM: Male, 73 years old. Pain following a fall. TECHNIQUE: 3 view(s) of the sacrum and coccyx were obtained. COMPARISON: None. FINDINGS: There is degenerative arthrosis of the bilateral sacroiliac joints. Normal visualized sacral ala and fused sacral bodies. Normal sacrococcygeal junction with a normal angulation. Normal coccygeal segments. The presacral soft tissue structures are unremarkable. Degenerative changes of the lumbar spine. Prior left total hip replacement. Marked degree of joint space narrowing and possible femoral acetabular impingement involving the right hip joint. RAD/Sacrum-Coccyx min 2 Views IMPRESSION: Degenerative changes. No fracture or dislocation is seen. Electronically Signed: Gerardo Matthews MD at 14:48 EDT ,
--- NOTE | 2023-12-30 13:55 | RAD_ITS ---
STUDY: X-RAY - THORACIC SPINE REASON FOR EXAM: Male, 73 years old. Pain TECHNIQUE: 3 view(s) of the thoracic spine were obtained. COMPARISON: None. FINDINGS: Normal kyphosis of the thoracic spine. There is no substantial scoliosis. There is demineralization of the thoracic spine with endplate spondylosis. Prominent spondylosis at the T9-T10 vertebral level. There is multilevel disc space narrowing of the thoracic spine. Tortuosity of the descending thoracic aorta. RAD/Thoracic Spine 3 Views IMPRESSION: Multilevel disc space narrowing and spondylosis. Electronically Signed: Gerardo Matthews MD at 14:50 EDT ,
--- NOTE | 2023-12-30 13:57 | EX.ED.GENINJ ---
HPI History of Present Illness Chief Complaint: Fall Narrative Narrative: 73-year-old male presenting with pain all over his back. He slipped and fell and corn syrup. He states I fell on my coccyx and then hit my back. He states he also hit his head and was stunned. He states he did not lose consciousness. He is not on blood thinners other than daily aspirin. [facility] Medical History Gastric ulcer HLD (hyperlipidemia) Cerebrovascular accident BPH (benign prostatic hyperplasia) Benign essential HTN Asthma Home Medications ?Medication ?Instructions ?Recorded ?Last Taken ?Type aspirin 81 mg chewable tablet 81 mg PO DAILY HEART HEALTH 08/22/13 06/17/23 History atorvastatin 20 mg tablet 20 mg PO QHS CHOLESTEROL 08/22/13 06/17/23 History docusate sodium 100 mg capsule 100 mg PO DAILY STOOL SOFTENER 08/22/13 06/18/23 History (DOK) lisinopril 40 mg tablet 40 mg PO DAILY BLOOD PRESSURE 08/22/13 06/18/23 History doxazosin 4 mg tablet 4 mg PO QHS BLOOD PRESSURE 04/29/15 06/17/23 History nifedipine 60 mg tablet,extended 60 mg PO DAILY BLOOD PRESSURE 04/29/15 06/18/23 History release albuterol sulfate 90 mcg/actuation 2 puff inhalation Q4H PRN 09/30/15 06/17/23 History aerosol inhaler (Ventolin HFA) SHORTNESS OF BREATH tamsulosin 0.4 mg capsule 0.4 mg PO DAILY PROSTATE 5 days 06/02/16 06/17/23 Rx tizanidine 4 mg tablet 4 mg PO Q8H PRN MUSCLE SPASMS #20 09/02/22 06/18/23 Rx tabs amoxicillin 875 mg-potassium 1 tab PO BID #10 tabs 06/20/23 Unknown Rx clavulanate 125 mg tablet codeine 10 mg-guaifenesin 200 mg/5 5 ml PO Q6H PRN cough #473 mL 06/20/23 Unknown Rx mL oral liquid dexamethasone 4 mg tablet 6 mg (1.5 x 4 mg) PO DAILY #7 tabs 06/20/23 Unknown Rx guaifenesin 1,200 mg tablet, 1,200 mg PO BID 1 week #14 tabs 06/20/23 Unknown Rx extended release 12 hr (Mucus Relief ER) hydrocodone-acetaminophen 5-325mg 1 tab PO Q4H PRN PRN Pain 3 days 12/30/23 Unknown Rx 5mg-325mg #10 TABLETS Allergy/AdvReac Type Severity Reaction Status Date / Time oxycodone HCl (From Percocet) Allergy Hives Verified 06/18/23 08:34 Family History Other Diabetes Hypertension Social History household members: spouse housing: house Smoking Status: Former smoker alcohol intake: current alcohol intake frequency: holidays/special occasions only substance use type: does not use ROS ROS ED Constitutional Constitutional ED: Denies chills, fever(s) or sweats Eyes Eyes: Denies blurry vision or change in vision ENT ENT ED: Denies ear pain or sore throat Cardiovascular Cardiovascular: Denies chest pain, palpitations or racing heartbeat Respiratory/Chest Respiratory/Chest: Denies cough, dyspnea or sputum Gastrointestinal Gastrointestinal: Denies abdominal pain, constipation, diarrhea, nausea or vomiting Genitourinary Genitourinary ED: Denies dysuria, hematuria or urinary frequency Musculoskeletal Musculoskeletal: Reports back pain; Denies arthralgias, myalgias or neck pain Integumentary Denies abscess, Abrasions or rash Neurologic Neurologic: Reports headache(s); Denies paresthesias or weakness Psychiatric Psychiatric: Denies anxiety, depression, suicidal ideation or suicidal thoughts Endocrine Endocrinology: Denies polydipsia or polyuria EXAM Physical Exam Const Vital Signs: 12/30/23 12:23 12/30/23 12:27 Temperature 96.7 F L Temperature Source Temporal Pulse Rate 70 Respiratory Rate 19 H Respiratory Effort Normal Non-Labored Respiratory Depth Normal Respiratory Pattern Normal Blood Pressure 157/97 H Blood Pressure Mean 117 Pulse Ox 98 Oxygen Delivery Method Room Air Room Air Positive well nourished General Appearance ED: NAD HEENT atraumatic Eyes PERRL and EOMs intact bilaterally Chest Wall inspection of chest normal and palpation of chest normal Resp normal respiratory effort Cardio regular rhythm Back/Spine Back/Spine Narrative: Midline lumbar spinal tenderness without deformity or step-off approximately 1-2. There is also tenderness to palpation of the thoracic spine distally without deformities. Tenderness over the sacrum. There is also diffuse generalized back pain on the bilateral paraspinal musculature. No evidence of bruising, abrasions, lacerations Neuro oriented x3 and CN's II-XII intact bilaterally Sensorium / Orientation: alert Motor Exam: strength 5/5 throughout Psych mental status grossly normal Skin no rashes or lesions noted MDM MDM MDM Narrative Medical decision making narrative: Patient presenting after mechanical fall. Slipped and fell backwards onto his tailbone and hitting his back hitting his head without LOC. He does not have any nausea or dizziness currently but states he was stunned initially. Differential includes compression fracture, lumbar strain, thoracic strain, sacral fracture, sacral contusion, intracranial hemorrhage, fracture, C-spine fracture fracture, cervical strain. X-rays of the cervical spine, thoracic spine, lumbar spine, sacrum interpreted by myself as no acute fractures or subluxation CT brain was obtained and is negative for acute cranial process. Patient feeling improved after receiving [place] for pain. I will provide a short supply for home. Worker's Compensation paperwork was filled out. He was given some work restrictions. Return precautions are discussed. Impression: 1. Mechanical fall 2. Closed head injury 3. Cervical strain 4. Thoracic strain 5. Lumbar strain 6. Sacral contusion Radiography Diagnostic Testing: Clinical Impression(s) from Imaging Studies Cervical Spine X-Ray 12/30/23 13:55 IMPRESSION: Loss of the normal cervical lordosis. Multilevel disc space narrowing and spondylosis. Carotid bifurcations calcification. Electronically Signed: Gerardo Matthews MD at 14:43 EDT , Sacrum and Coccyx X-Ray 12/30/23 13:55 IMPRESSION: Degenerative changes. No fracture or dislocation is seen. Electronically Signed: Gerardo Matthews MD at 14:48 EDT , Thoracic Spine X-Ray 12/30/23 13:55 IMPRESSION: Multilevel disc space narrowing and spondylosis. Electronically Signed: Gerardo Matthews MD at 14:50 EDT , Brain CT 12/30/23 14:06 IMPRESSION: Chronic involutional changes of the brain. Electronically Signed: Gerardo Matthews MD at 14:28 EDT , Lumbar Spine X-Ray 12/30/23 14:14 IMPRESSION: Degenerative changes of the spine, as detailed above. Minimal loss of height of the superior endplate of the L5 vertebrae. Electronically Signed: Gerardo Matthews MD at 14:49 EDT , Discharge Plan Triage Chief Complaint: Fall ED Provider: Kahlil Mike Dx/Rx/DC Orders Instructions: ED Coccyx or Sacrum Contusion, ED Back Contusion, ED Head Injury (Adult), ED Neck Sprain or Strain, ED Thoracic Spine Strain Prescriptions: New hydrocodone-acetaminophen 5-325 mg tablet 1 tab PO Q4H PRN PRN (Reason: Pain) 3 Days Qty: 10 0RF No Action tizanidine 4 mg tablet 4 mg PO Q8H PRN (Reason: MUSCLE SPASMS ) Qty: 20 0RF atorvastatin 20 MG tablet 20 mg PO QHS docusate sodium [DOK] 100 MG capsule 100 mg PO DAILY aspirin 81 MG tablet,chewable 81 mg PO DAILY lisinopril 40 MG tablet 40 mg PO DAILY doxazosin 4 MG tablet 4 mg PO QHS nifedipine 60 MG tablet extended release 60 mg PO DAILY albuterol sulfate [Ventolin HFA] 1 INHALER inhaler 2 puff inhalation Q4H PRN (Reason: SHORTNESS OF BREATH ) tamsulosin 0.4 MG capsule 0.4 mg PO DAILY 5 Days 0RF guaifenesin [Mucus Relief ER] 1,200 mg Tablet Extended Release 12hr 1,200 mg PO BID 7 Days Qty: 14 0RF dexamethasone 4 mg Tablet 6 mg PO DAILY Qty: 7 0RF amoxicillin-pot clavulanate 875-125 mg tablet 1 tab PO BID Qty: 10 0RF codeine-guaifenesin 10-200 mg/5 mL liquid 5 ml PO Q6H PRN (Reason: cough) Qty: 473 0RF Primary Care Provider: Maritza Feldman Referrals: Maritza Feldman MD [Primary Care Provider] - Print Language: Urdu Disposition Disposition: Home, Self Care
--- NOTE | 2023-12-30 14:06 | CT_ITS ---
STUDY: CT BRAIN WITHOUT CONTRAST REASON FOR EXAM: Male, 73 years old. Head injury RADIATION DOSAGE (If Supplied By Facility): CTDIvol = ( 47.06 ) mGy, DLP = ( 907.97 ) mGycm TECHNIQUE: Transaxial CT imaging of the brain was performed without administration of intravenous contrast material. Individualized dose optimization techniques were used for this CT. COMPARISON: No relevant priors. FINDINGS: Normal soft tissue structures. Normal calvarium. There is mild cerebral atrophy with widening of the extra-axial spaces and ventricular dilatation. There are areas of decreased attenuation within the white matter tracts of the supratentorial brain, consistent with microvascular disease changes. Normal basal ganglia and thalami. Normal brainstem. Normal cerebellum. There is no intracranial hemorrhage. There are no findings of an acute ischemic infarction. Normal visualized paranasal sinuses. CT/Brain/Head without Contrast IMPRESSION: Chronic involutional changes of the brain. Electronically Signed: Gerardo Matthews MD at 14:28 EDT ,
--- NOTE | 2023-12-30 14:14 | RAD_ITS ---
STUDY: X-RAY - LUMBAR SPINE REASON FOR EXAM: Male, 73 years old. Back pain TECHNIQUE: 3 view(s) of the lumbar spine were obtained. COMPARISON: None FINDINGS: Normal lumbar lordosis. There is no substantial scoliosis. There is a normal alignment of the vertebrae. Minimal loss of height of the superior endplate of the L5 vertebrae. There is multilevel endplate spondylosis of the lumbar vertebrae. There is multi-level degenerative disc disease with multi-level disc space narrowing. Facet joint osteoarthritis. There is atherosclerotic calcification of the abdominal aorta without a demonstrated aneurysm. RAD/Lumbar Spine 2 or 3 Views IMPRESSION: Degenerative changes of the spine, as detailed above. Minimal loss of height of the superior endplate of the L5 vertebrae. Electronically Signed: Gerardo Matthews MD at 14:49 EDT ,
[2023-12-30] MEDS: HYDROcodone Bitartrate/Apap 5/325 Tablet PO (14:50)
[2023-12-30 15:28] VITALS: BP 144/72; PULSE 81; RESP 16; TEMP 36.8; O2SAT 98
== END 2023-12-30 15:28 | disposition home or self-care (01) ==
PROVIDERS: Emergency Provider Student in an Organized Health Care Education/Training Program; PCP Internal Medicine; Visit Provider Student in an Organized Health Care Education/Training Program
DX: S09.90XA Unspecified injury of head, initial encounter (principal); I10 Essential (primary) hypertension; Z87.891 Personal history of nicotine dependence; E78.5 Hyperlipidemia, unspecified; S16.1XXA Strain of muscle, fascia and tendon at neck level, initial encounter; S29.019A Strain of muscle and tendon of unspecified wall of thorax, initial encounter; W01.10XA Fall on same level from slipping, tripping and stumbling with subsequent striking against unspecified object, initial encounter; Y99.0 Civilian activity done for income or pay; N40.0 Benign prostatic hyperplasia without lower urinary tract symptoms; Z79.899 Other long term (current) drug therapy
CPT/HCPCS: 70450; 72050; 72072; 72100; 72220; 99282

== ENCOUNTER 2025-03-31 09:42 | Emergency (ER) | payer MEDICARE, SELFPAY ==
[2025-03-31] VITALS (7 sets, daily range): BP systolic 152–187; BP diastolic 78–93; PULSE 65–83; RESP 16–25; TEMP 36.4–36.8; O2SAT 97–98
--- NOTE | 2025-03-31 09:45 | EKG12_ITS ---
Test Reason : CP Blood Pressure : */* mmHG Vent. Rate : 76 BPM Atrial Rate : 76 BPM P-R Int : 180 ms QRS Dur : 92 ms QT Int : 390 ms P-R-T Axes : 49 13 20 degrees QTcB Int : 438 ms Normal sinus rhythm Nonspecific T wave abnormality Abnormal ECG Confirmed by KATHY BIGGS ([id number]), sports editor BROOKLYN PÉREZ ([id number]) on 04/03/2025 9:07:10 AM Referred By: Confirmed By: KATHY BIGGS
--- NOTE | 2025-03-31 10:09 | RAD_ITS ---
PROCEDURE: CHEST 1 VIEW (PORTABLE) 03/31/2025 REASON FOR EXAM: SOB TECHNIQUE: Frontal view of the chest. COMPARISON: 06/19/2023 FINDINGS: Hardware: EKG leads overlie the chest Heart: The heart size is normal. Lungs: The lungs are clear. Bones: Degenerative changes are identified within the thoracic spine. Replaced right glenohumeral joint free of complication Other: RAD/Chest 1 View (Portable) IMPRESSION: No acute pulmonary process Reading Location: [id number]
[2025-03-31 10:26] LABS: Hematocrit 42.4 % (40-54); Hemoglobin 13.1 g/dL (13.0-16.5); Immature Granulocytes Count 0.030 X10^3/uL (0.0-0.0); Mean Corp Hgb Conc 30.9 g/dL (32-36); Mean Corpuscular Volume 70.0 fL (80-94); Mean Platelet Vol. 10.8 fl (6.2-12.0); NRBC Flagged by Analyzer 0 % (0-5); Platelet Count 163 K/mm3 (150-450); RBC Distribution Width CV 16.4 % (11.6-14.6); RBC Distribution Width SD 39.2 fl (35.1-43.9); Red Blood Count 6.06 M/mm3 (4.6-6.2); White Blood Count 5.5 K/mm3 (4.4-11.0)
[2025-03-31 10:41] LABS: Anion Gap 10 (5-15); BUN 9 mg/dL (4-19); BUN/Creat Ratio 10.1 RATIO (10-20); Calcium,Total 8.8 mg/dL (7.6-11.0); Carbon Dioxide 23.8 mmol/L (21.0-32.0); Chloride 107 mmol/L (98-108); Glucose 95 mg/dL (70-99); Potassium 4.3 mmol/L (3.3-5.1); Troponin T High Sensitivity 10 ng/L (<=22)
[2025-03-31] MEDS: 0.9% Normal Saline (1000mL) 1,000 ML 999 ML IV (11:59)
--- NOTE | 2025-03-31 13:02 | EX.ED.VIS.UR ---
HPI HPI - URI History of Present Illness Chief Complaint: Shortness of Breath Informant: patient Narrative Narrative: Patient is a 74-year-old male with history of asthma as well as hypertension and BPH and hyperlipidemia presenting with worsening cough, chest tightness and shortness of breath. Patient states that started couple days ago and think it was triggered from being in the rain and this had been uncovered. Started with a small cough and sinus congestion but has progressed. 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 Has associated chills but no fevers that developed last night. Has congestion and runny nose. Denies any ear pain. States that chest pain is more of a pressure in the center of his chest and a feeling of fullness. Took NyQuil last night with no relief. Does have a history of asthma and has an inhaler but has not used it. ROS ROS ED Constitutional Constitutional ED: Reports chills; Denies fever(s) ENT ENT ED: Reports rhinorrhea and other Details: Nasal congestion ; Denies ear pain Cardiovascular Cardiovascular: Reports chest pain Respiratory/Chest Respiratory/Chest: Reports cough, dyspnea and sputum Gastrointestinal Gastrointestinal: Reports nausea; Denies abdominal pain, diarrhea or vomiting Genitourinary Genitourinary ED: Denies dysuria Musculoskeletal Musculoskeletal: Reports myalgias; Denies arthralgias Integumentary Denies rash Neurologic Neurologic: Reports weakness Hematologic/Lymphatic Hematologic/Lymphatic: Denies easy bleeding or easy bruising [facility] Medical History Gastric ulcer HLD (hyperlipidemia) Cerebrovascular accident BPH (benign prostatic hyperplasia) Benign essential HTN Asthma Home Medications ?Medication ?Instructions ?Recorded ?Last Taken ?Type aspirin 81 mg chewable tablet 81 mg PO DAILY HEART HEALTH 08/22/13 06/17/23 History atorvastatin 20 mg tablet 20 mg PO QHS CHOLESTEROL 08/22/13 06/17/23 History docusate sodium 100 mg capsule 100 mg PO DAILY STOOL SOFTENER 08/22/13 06/18/23 History (DOK) lisinopril 40 mg tablet 40 mg PO DAILY BLOOD PRESSURE 08/22/13 06/18/23 History doxazosin 4 mg tablet 4 mg PO QHS BLOOD PRESSURE 04/29/15 06/17/23 History nifedipine 60 mg tablet,extended 60 mg PO DAILY BLOOD PRESSURE 04/29/15 06/18/23 History release albuterol sulfate 90 mcg/actuation 2 puff inhalation Q4H PRN 09/30/15 06/17/23 History aerosol inhaler (Ventolin HFA) SHORTNESS OF BREATH tamsulosin 0.4 mg capsule 0.4 mg PO DAILY PROSTATE 5 days 06/02/16 06/17/23 Rx tizanidine 4 mg tablet 4 mg PO Q8H PRN MUSCLE SPASMS #20 09/02/22 06/18/23 Rx tabs amoxicillin 875 mg-potassium 1 tab PO BID #10 tabs 06/20/23 Unknown Rx clavulanate 125 mg tablet codeine 10 mg-guaifenesin 200 mg/5 5 ml PO Q6H PRN cough #473 mL 06/20/23 Unknown Rx mL oral liquid dexamethasone 4 mg tablet 6 mg (1.5 x 4 mg) PO DAILY #7 tabs 06/20/23 Unknown Rx guaifenesin 1,200 mg tablet, 1,200 mg PO BID 1 week #14 tabs 06/20/23 Unknown Rx extended release 12 hr (Mucus Relief ER) hydrocodone-acetaminophen 5-325mg 1 tab PO Q4H PRN PRN Pain 3 days 12/30/23 Unknown Rx 5mg-325mg #10 TABLETS albuterol sulfate 90 mcg/actuation 1 - 2 puff inhalation Q4H PRN PRN 03/31/25 Unknown Rx aerosol inhaler (Ventolin HFA) Wheezing #1 inh azithromycin 250 mg tablet 250 mg PO DAILY #6 TABLETS 03/31/25 Unknown Rx benzonatate 200 mg capsule 200 mg PO TID PRN cough #20 caps 03/31/25 Unknown Rx prednisone 20 mg tablet 40 mg (2 x 20 mg) PO DAILY #8 tabs 03/31/25 Unknown Rx Allergy/AdvReac Type Severity Reaction Status Date / Time oxycodone HCl (From Percocet) Allergy Hives Verified 03/31/25 09:47 Family History Other Diabetes Hypertension Social History household members: spouse housing: house Smoking Status: Former smoker alcohol intake: current alcohol intake frequency: holidays/special occasions only substance use type: does not use EXAM Physical Exam Const Vital Signs: 03/31/25 09:43 03/31/25 09:44 03/31/25 09:45 Temperature 98 F Temperature Source Temporal Pulse Rate 76 Respiratory Rate 20 H Respiratory Effort Short of Breath Respiratory Depth Normal Respiratory Pattern Tachypnea Blood Pressure 153/91 H Blood Pressure Mean 111 Pulse Ox 97 Oxygen Delivery Method Room Air Room Air Room Air 03/31/25 11:15 03/31/25 11:40 03/31/25 12:00 Temperature 97.6 F L 97.8 F Temperature Source Oral Oral Pulse Rate 83 70 Respiratory Rate 25 H 18 Respiratory Effort Respiratory Depth Respiratory Pattern Blood Pressure 187/92 H 161/93 H Blood Pressure Mean 123 115 Pulse Ox 98 98 98 Oxygen Delivery Method Room Air Room Air Room Air 03/31/25 12:03 Temperature Temperature Source Pulse Rate 65 Respiratory Rate 16 Respiratory Effort Respiratory Depth Respiratory Pattern Normal Blood Pressure Blood Pressure Mean Pulse Ox Oxygen Delivery Method Positive well nourished and well developed General Appearance ED: well developed and NAD HEENT Reports dry mucous membranes HEENT Narrative: Nasal congestion present Mouth ED: Yes dry mucous membranes Mouth: dry mucous membranes Throat: posterior oropharynx normal Eyes PERRL Neck no lymphadenopathy, supple, no meningeal signs and no JVD Resp normal respiratory effort Resp Narrative: Transmitted upper respiratory noises and some scattered rhonchi present. No crackles or wheezing appreciated. Normal breath sounds at the bases bilaterally Cardio no murmurs Rate: regular rate Rhythm: regular rhythm GI non-tender and non-distended Extremity normal to inspection and full ROM Neuro oriented x3 Sensorium / Orientation: alert Motor Exam: general weakness Psych mental status grossly normal Skin Lesions: no lesions Rashes: no rashes MDM MDM MDM Narrative Medical decision making narrative: Patient is evaluated for 2 to 3 days of worsening URI symptoms as well as now cough, shortness of breath and chest discomfort. Patient's blood pressure mildly elevated but he is not hypoxic. Physical exam most consistent with bronchitis/viral syndrome versus pneumonia. Does not sound like an anginal equivalent/ACS. EKG is obtained which does not show any acute ischemic changes I do not think he needs serial troponins. Workup including chest x-ray, CBC, BMP and high-sensitivity troponin is all largely normal. Does not have a leukocytosis. Chest x-ray reviewed by myself as well as urology does not show any acute infiltrate. Patient given IV fluids, Toradol and DuoNeb in the ER. On repeat evaluation he is feeling improved. Is ambulated with no hypoxia. Will be discharged home and treated as a bronchitis, likely from viral syndrome (seen high community spread of rhinovirus/enterovirus right now). Started on prednisone in the emergency room. Also given a prescription for Tessalon Perles, albuterol inhaler and a Z-Ady. Given return precautions. Given a work note for today and this weekend. Counseled supportive treatment including Mucinex, pushing fluids and rest. Lab Data Attestation: I reviewed the patient's lab results. Labs: Laboratory Results - last 24 hr 03/31/25 10:08 WBC 5.5 RBC 6.06 Hgb 13.1 Hct 42.4 MCV 70.0 L MCH 21.6 L MCHC 30.9 L RDW Std Deviation 39.2 RDW Coeff of Alia 16.4 H Plt Count 163 MPV 10.8 Immature Gran % (Auto) 0.500 Neut % (Auto) 65.4 Lymph % (Auto) 18.4 L [place] % (Auto) 10.7 H Eos % (Auto) 4.3 Baso % (Auto) 0.7 Absolute Neuts (auto) 3.6 Absolute Lymphs (auto) 1.02 Nucleated RBC % 0 Sodium 141 Potassium 4.3 Chloride 107 Carbon Dioxide 23.8 Anion Gap 10 BUN 9 Creatinine 0.90 Est GFR (MDRD) Non-Af 90 BUN/Creatinine Ratio 10.1 Glucose 95 Calcium 8.8 Troponin T High Sens 10 Radiography Chest X-Ray - ED: 1 View, Read by ED Physician, Read by Radiologist and No Acute Disease Diagnostic Testing: Clinical Impression(s) from Imaging Studies Chest X-Ray 03/31/25 10:09 IMPRESSION: No acute pulmonary process Reading Location: [facility] Rhythm Strip Rhythm Strip: Sinus Rhythm Rate: 76 Ectopy: None EKG Initial EKG: Attestation: I personally reviewed and interpreted this EKG as follows: Interpretation: Sinus Rhythm Comments: Normal sinus rhythm at a rate of 76 bpm Normal axis Normal intervals Normal ST segments with nonspecific T wave abnormalities in leads III and aVF Prior EKG tracings: available for review Prior: Unchanged Discharge Plan Triage Chief Complaint: Shortness of Breath ED Provider: Latrice Betancourt Dx/Rx/DC Orders Clinical Impression: Acute viral syndrome, Bronchitis Instructions: ED URI, Viral W/ Wheezing (Adult) Prescriptions: New prednisone 20 mg tablet 40 mg PO DAILY Qty: 8 0RF azithromycin 250 mg tablet 250 mg PO DAILY Qty: 6 0RF Rx Instructions: 2 pills first day, 1 pill days 2 through 4 benzonatate 200 mg capsule 200 mg PO TID PRN (Reason: cough) Qty: 20 0RF albuterol sulfate [Ventolin HFA] 90 mcg/actuation HFA aerosol inhaler 1 - 2 puff inhalation Q4H PRN PRN (Reason: Wheezing) Qty: 1 0RF No Action tizanidine 4 mg tablet 4 mg PO Q8H PRN (Reason: MUSCLE SPASMS ) Qty: 20 0RF atorvastatin 20 MG tablet 20 mg PO QHS docusate sodium [DOK] 100 MG capsule 100 mg PO DAILY aspirin 81 MG tablet,chewable 81 mg PO DAILY lisinopril 40 MG tablet 40 mg PO DAILY doxazosin 4 MG tablet 4 mg PO QHS nifedipine 60 MG tablet extended release 60 mg PO DAILY albuterol sulfate [Ventolin HFA] 1 INHALER inhaler 2 puff inhalation Q4H PRN (Reason: SHORTNESS OF BREATH ) tamsulosin 0.4 MG capsule 0.4 mg PO DAILY 5 Days 0RF guaifenesin [Mucus Relief ER] 1,200 mg Tablet Extended Release 12hr 1,200 mg PO BID 7 Days Qty: 14 0RF dexamethasone 4 mg Tablet 6 mg PO DAILY Qty: 7 0RF amoxicillin-pot clavulanate 875-125 mg tablet 1 tab PO BID Qty: 10 0RF codeine-guaifenesin 10-200 mg/5 mL liquid 5 ml PO Q6H PRN (Reason: cough) Qty: 473 0RF hydrocodone-acetaminophen 5-325 mg tablet 1 tab PO Q4H PRN PRN (Reason: Pain) 3 Days Qty: 10 0RF Stand Alone Forms: ED Work / School Excuse Primary Care Provider: Maritza Feldman Referrals: Maritza Feldman MD [Primary Care Provider, Internal Medicine] Activity Restrictions/Additional Instructions: I suspect you have a viral syndrome that is causing bronchitis. You been prescribed steroids, antibiotics and cough medicine for this. Also given a new prescription for an inhaler in case your old inhaler is or running low. In addition to this I do recommend taking [id number] Mucinex to help thin up the secretions and help you cough it up. Alternate ibuprofen and Tylenol as needed for fever in general not feeling well. If you are going to take a decongestant I suggest you take the brand Coricidin HBP which is meant for people with high blood pressure and will not raise the blood pressure. Regular [id number] decongestants can raise the blood pressure otherwise Print Language: [place] Disposition Disposition: Home, Self Care
[2025-03-31 13:05] LABS: Troponin T High Sens 2 HR 10 ng/L (<=22)
== END 2025-03-31 13:36 | disposition home or self-care (01) ==
PROVIDERS: Emergency Provider Emergency Medicine; PCP Internal Medicine; Visit Provider Emergency Medicine
DX: B34.9 Viral infection, unspecified (principal); J40 Bronchitis, not specified as acute or chronic; Z87.891 Personal history of nicotine dependence
CPT/HCPCS: 71045; 80048; 84484; 85025; 93005; 94640; 94760; 96361; 96374; 96376; 99283; A4216